=== PATIENT | male | born 1980 | race Caucasian/White ===

== ENCOUNTER 2022-12-28 16:44 | Emergency (ER) | payer OTHER, SELFPAY ==
[2022-12-28 16:51] VITALS: BP 151/87; PULSE 86; RESP 20; TEMP 36.9; O2SAT 95; BMI 42.4
[2022-12-28 17:01] VITALS: PULSE 88; O2SAT 94
[2022-12-28 17:02] VITALS: BP 138/67; PULSE 80; O2SAT 95
--- NOTE | 2022-12-28 17:13 | CRLHL7_ITS ---
For Patients: As a result of the Century Cures Act, medical imaging exams and procedure reports are released immediately into your electronic medical record. You may view this report before your referring provider. If you have questions, please contact your health care provider. INDICATION: Left flank and groin pain. TECHNIQUE: Multiple axial images were obtained from the diaphragm to the symphysis pubis without contrast. Sagittal and coronal re-formatted images were obtained. COMPARISON: 03/26/2011. FINDINGS: The visualized portion of the lung bases are clear. The liver, spleen, pancreas, gallbladder and adrenal glands are unremarkable nonenhanced CT appearance. There is no stone seen in the kidneys. There is no right hydronephrosis or ureteral stone. There is moderate left hydronephrosis with a 0.6 cm stone in the in the proximal left ureter. There is no other stone seen in the left ureter. There is no evidence of a bowel obstruction. The appendix is unremarkable. The abdominal aorta is normal in caliber. There is no adenopathy. There are atherosclerotic calcifications. There is no free fluid in the abdomen or pelvis. There are degenerative changes in the spine. IMPRESSION: 0.6 cm stone proximal left ureter causing moderate left hydronephrosis. Please note that all CT scans at this facility use dose modulation, iterative reconstruction, and/or weight-based dosing when appropriate to reduce radiation dose to as low as reasonably achievable. Dictated by Geovany Hart MD @ 12/28/2022 5:47:27 PM (Electronically Signed)
[2022-12-28 17:15] VITALS: PULSE 87; O2SAT 96
--- NOTE | 2022-12-28 17:18 | ED_ITS ---
HPI - General Adult General Chief complaint: Abdominal Pain Stated complaint: abdominal pain Time Seen by Provider: 12/28/22 16:51 Source: patient Mode of arrival: ambulatory Limitations: no limitations History of Present Illness HPI narrative: 42-year-old male coming in today complaining of abdominal pain. Pain started middle of night last night. Located in the left flank and radiates into the left groin. He states that the pain became so bad middle of the day started vomiting. He denies any fevers or chills. He denies any constipation or diarrhea, BMs have been normal. He denies any dysuria or hematuria. He states that about 13 years ago he had an episode of kidney stones and this feels very reminiscent of that. His past medical history significant for obesity and GERD. He takes famotidine and pantoprazole daily. Related Data Home Medications Medication Instructions Recorded Confirmed famotidine 40 mg tablet 40 mg PO DAILY 12/28/22 12/28/22 pantoprazole 40 mg tablet,delayed 40 mg PO DAILY 12/28/22 12/28/22 release Previous Rx's Medication Instructions Recorded tamsulosin 0.4 mg capsule (Flomax) 0.4 mg PO DAILY #20 caps 12/28/22 Allergies Allergy/AdvReac Type Severity Reaction Status Date / Time No Known Drug Allergies Allergy Verified 12/28/22 16:57 Review of Systems Status of ROS: Reports: 10 or more systems reviewed and unremarkable except as noted in History and below [facility] Social History Smoking Status: Former smoker Second hand tobacco smoke exposure: No How often do you have a drink containing alcohol: 2-4 times a month How many standard drinks containing alcohol do you have on a typical day: 1 or 2 How often do you have six or more drinks on one occasion: Never AUDIT-C Alcohol total score: 2 Non-prescribed substance use: denies use Exam Narrative: Exam Narrative: Well-nourished well-developed patient in no acute distress. Alert and oriented. Answers questions appropriately. Mood and affect are appropriate. Thoughts are goal oriented and rational. No tangential or magical thinking noted. Patient speaks in full sentences without needing to catch their breath. HEENT: Normocephalic atraumatic. Pupils are equally round reactive to light. Extraocular muscles are intact. Conjunctivae are moist without any icterus noted. Moist mucous membranes. Posterior pharynx is normal. Neck is soft without any lymphadenopathy or thyromegaly. No masses are appreciated. Cardiovascular: Heart is regular rate and rhythm S1 and S2 are present without any murmurs. Lungs: Clear to auscultation bilaterally no wheezes rhonchi or rales are appreciated. Patient takes deep breaths without any discomfort. Abdomen: Protuberant and soft with normal bowel sounds. No significant tenderness noted. Extremities: Bilateral lower extremities are without edema. Normal DP and PT pulses. Skin: Well perfused without any obvious rashes. Const: Vital Signs, click to edit/add: Vital Signs - 24 hr 12/28/22 16:51 12/28/22 17:01 12/28/22 17:02 Temperature 98.4 F Pulse Rate 88 80 Pulse Rate [Pulse Oximeter] 86 Respiratory Rate 20 Blood Pressure 138/67 Blood Pressure [Ri ght Upper Arm] 151/87 H Pulse Oximetry 95 94 95 Oxygen Delivery Me thod Room Air 12/28/22 17:15 Temperature Pulse Rate 87 Pulse Rate [Pulse Oximeter] Respiratory Rate Blood Pressure Blood Pressure [Ri ght Upper Arm] Pulse Oximetry 96 Oxygen Delivery Me thod Course Course Hospital Course: IV established, normal saline started, and labs drawn. CT shows a 6 mm stone in the proximal ureter with hydronephrosis. White cell count elevated at just above 14,000, normal CRP. Normal creatinine. Patient received IV Toradol and Zofran while he was here, pain is well control led. I did consult with Dr. Marc, urology at [facility], who recommended outpatient follow-up. Vital Signs Vital signs: Initial Vital Signs Temperature 98.4 F 12/28/22 16:51 Temperature Source Temporal Artery Scan 12/28/22 16:51 Pulse Rate 86 12/28/22 16:51 Respiratory Rate 20 12/28/22 16:51 Blood Pressure 151/87 H 12/28/22 16:51 Blood Pressure Mean 108 12/28/22 16:51 Blood Pressure Position Semi-Fowlers 12/28/22 16:51 Pulse Oximetry 95 12/28/22 16:51 Oxygen Delivery Method Room Air 12/28/22 16:51 Vital Signs Temperature 98.4 F 12/28/22 16:51 Pulse Rate 86 12/28/22 16:51 Respiratory Rate 20 12/28/22 16:51 Blood Pressure 151/87 H 12/28/22 16:51 Pulse Oximetry 95 12/28/22 16:51 Oxygen Delivery Method Room Air 12/28/22 16:51 Temperature 98.4 F 12/28/22 16:51 Pulse Rate 87 12/28/22 17:15 Respiratory Rate 20 12/28/22 16:51 Blood Pressure 138/67 12/28/22 17:02 Pulse Oximetry 96 12/28/22 17:15 Oxygen Delivery Method Room Air 12/28/22 16:51 Medical Decision Making MDM Narrative Medical decision making narrative: 42-year-old male with a proximal ureter 6 mm kidney stone. Patient will be discharged home on Flomax, Cipro and Toradol. Follow-up with urology as an outpatient. Low threshold to return to the ER. Lab Data Lab results reviewed: Yes I reviewed the patient's lab results Labs: Lab Results 12/28/22 12/28/22 Range/Units 17:17 17:30 WBC 14.38 H (4.50-11.00) K/uL RBC 5.96 H (4.30-5.90) m/uL Hgb 17.0 (13.5-17.5) gm/dL Hct 50.8 (37.0-53.0) % MCV 85 (80-100) fL MCH 29 (26-34) pg MCHC 34 (32-36) gm/dL RDW Coeff of Shun 12.9 (11.5-15.5) % Plt Count 261 (140-440) K/uL Neut % (Auto) 73.5 H (42.0-72.0) % Lymph % (Auto) 16.9 L (20-44) % Bacon % (Auto) 8.3 (0.0-11.0) % Eos % (Auto) 0.7 (0.0-7.0) % Baso % (Auto) 0.3 (0.0-3.0) % Neut # (Auto) 10.60 H (1.7-7.0) K/uL Lymph # (Auto) 2.40 (0.90-2.90) K/uL Bacon # (Auto) 1.20 H (0.00-0.90) K/UL Eos # (Auto) 0.10 (0.00-0.50) K/uL Baso # (Auto) 0.00 (0.00-0.30) K/uL Sodium 139 (135-149) mmol/L Potassium 4.1 (3.6-5.1) mmol/L Chloride 108 (96-114) mmol/L Carbon Dioxide 24 (20-32) mmol/L BUN 13 (5-24) mg/dL Creatinine 1.0 (0.5-1.5) mg/dL Estimated Creat Clear 82.00 Estimated GFR 95 ml/min Glucose 102 (60-115) mg/dL Lactate 0.9 (0.5-1.9) mmol/L Calcium 9.1 (8.4-10.6) mg/dL Total Bilirubin 0.4 (0.1-1.5) mg/dL Direct Bilirubin 0.1 (0.0-0.5) mg/dL AST 29 (12-35) U/L ALT 45 (4-50) U/L Alkaline Phosphatase 50 (40-150) U/L C-Reactive Protein 0.8 (0.5-1.0) mg/dL Total Protein 7.2 (6.0-8.3) g/dL Albumin 4.4 (3.3-5.0) g/dL Lipase 77 (23-300) U/L Urine Color Yellow (Yellow) Urine Appearance Clear (Clear) Urine pH 6.0 (5.0-8.5) Ur Specific [place] 1.020 (1.000-1.030) Urine Protein Negative (Negative) Urine Glucose (UA) Negative (Negative) Urine Ketones Negative (Negative) Urine Blood 3+ A (Negative) Urine Nitrite Negative (Negative) Urine Bilirubin Negative (Negative) Urine Urobilinogen 0.2 (0.2-1.0) Ur Leukocyte Esterase Negative (Negative) Urine RBC 25-50 A (0-2) Urine WBC 2-5 (0-5) Ur Squamous Epith Cells None (None-Few) Urine Bacteria None (None) Imaging Data CT scan - abdomen: Attestation: I have reviewed the pertinent imaging results. Radiologist's impression: Multiple axial images were obtained from the diaphragm to the symphysis pubis without contrast. Sagittal and coronal re-formatted images were obtained. COMPARISON: 03/26/2011. FINDINGS: The visualized portion of the lung bases are clear. The liver, spleen, pancreas, gallbladder and adrenal glands are unremarkable nonenhanced CT appearance. There is no stone seen in the kidneys. There is no right hydronephrosis or ureteral stone. There is moderate left hydronephrosis with a 0.6 cm stone in the in the proximal left ureter. There is no other stone seen in the left ureter. There is no evidence of a bowel obstruction. The appendix is unremarkable. The abdominal aorta is normal in caliber. There is no adenopathy. There are atherosclerotic calcifications. There is no free fluid in the abdomen or pelvis. There are degenerative changes in the spine. IMPRESSION: 0.6 cm stone proximal left ureter causing moderate left hydronephrosis. Discharge Plan Discharge Clinical Impression: Calculus of kidney Patient Disposition: Home, Self-Care Condition: Stable Additional Instructions: Take Flomax daily-this will relax the muscles around the stone to help it pass. (sent to pharmacy) Take antibiotic daily-this will prevent infection of the kidney. (instymeds) Take pain medication as needed.(InstyMeds) Return to the ER if you develop pain that cannot be controlled or a fever. You will need follow-up with urology as an outpatient-information to make an appointment will be provided to you. Prescriptions: New tamsulosin [Flomax] 0.4 mg capsule 0.4 mg PO DAILY Qty: 20 0RF No Action famotidine 40 mg tablet 40 mg PO DAILY pantoprazole 40 mg tablet,delayed release (DR/EC) 40 mg PO DAILY Stand Alone Forms: [employer] Info Instructions
[2022-12-28 17:26] LABS: Appearance Urine Clear (Clear); Bilirubin Urine Negative (Negative); Blood Urine 3+ (Negative); Color Urine Yellow (Yellow); Glucose Urine Negative (Negative); Ketones Urine Negative (Negative); Leukocyte Esterase Urine Negative (Negative); Nitrite Urine Negative (Negative); Protein Urine Negative (Negative); Urobilinogen Urine 0.2 (0.2-1.0)
[2022-12-28] MEDS: 0.9 % SODIUM CHLORIDE 1000 ml 1,000 ML IV (17:35)
[2022-12-28 17:44] LABS: RBC Urine 25-50 (0-2)
[2022-12-28 17:44] LABS: Lactate* 0.9 mmol/L (0.5-1.9)
[2022-12-28 17:55] LABS: Hematocrit 50.8 % (37.0-53.0); Mean Corpuscular HGB Conc 34 gm/dL (32-36); Mean Corpuscular Hemoglobin 29 pg (26-34); Mean Corpuscular Volume 85 fL (80-100); Neutrophils Percent Auto 73.5 % (42.0-72.0); Platelet Count* 261 K/uL (140-440); RDW Coefficient of Variation % 12.9 % (11.5-15.5); Red Blood Count 5.96 m/uL (4.30-5.90); White Blood Count* 14.38 K/uL (4.50-11.00)
[2022-12-28 17:56] LABS: Basophils Percent Auto 0.3 % (0.0-3.0); Eosinophils Percent Auto 0.7 % (0.0-7.0); Immature Granulocytes Pct Auto 0.3 %; Lymphocytes Percent Auto 16.9 % (20-44); Monocytes Percent Auto 8.3 % (0.0-11.0); Slide Review Reflex No
[2022-12-28 18:00] LABS: Albumin* 4.4 g/dL (3.3-5.0); Chloride* 108 mmol/L (96-114)
[2022-12-28 18:01] LABS: Potassium* 4.1 mmol/L (3.6-5.1); Sodium* 139 mmol/L (135-149)
[2022-12-28 18:03] LABS: Estimated Glomerular Filt Rate 95 ml/min
[2022-12-28 18:04] LABS: Alanine Aminotransferase* 45 U/L (4-50); Alkaline Phosphatase* 50 U/L (40-150); Aspartate Amino Transferase* 29 U/L (12-35); Bilirubin Direct* 0.1 mg/dL (0.0-0.5); Bilirubin Total* 0.4 mg/dL (0.1-1.5); Blood Urea Nitrogen* 13 mg/dL (5-24); Calcium* 9.1 mg/dL (8.4-10.6); Carbon Dioxide* 24 mmol/L (20-32); Glucose* 102 mg/dL (60-115); Lipase* 77 U/L (23-300); Total Protein* 7.2 g/dL (6.0-8.3)
[2022-12-28 18:07] LABS: C Reactive Protein* 0.8 mg/dL (0.5-1.0)
[2022-12-28] MEDS: KETOROLAC 30 MG/ML inj IVP (18:33)
[2022-12-28] MEDS: ONDANSETRON 2 MG/ML inj 4 MG IVP (18:33)
== END 2022-12-28 19:18 | disposition home or self-care (01) ==
PROVIDERS: Emergency Provider Family Medicine
DX: N20.0 Calculus of kidney (principal)
CPT/HCPCS: 36415; 74176; 80048; 80076; 81001; 83605; 83690; 85025; 86140; 87086; 96374; 96375; 99284; J1885; J2405; J7030

== ENCOUNTER 2023-01-17 14:49 | Outpatient (CLI) | payer OTHER, SELFPAY ==
--- NOTE | 2023-01-17 15:00 | CRLHL7_ITS ---
For Patients: As a result of the Century Cures Act, medical imaging exams and procedure reports are released immediately into your electronic medical record. You may view this report before your referring provider. If you have questions, please contact your health care provider. Indication: Calculus of ureter Technique: Noncontrast CT abdomen and pelvis Comparison: CT 12/28/2022 Findings: Heart size is normal. Lung bases are clear. Unenhanced liver gallbladder pancreas adrenal unremarkable. Normal caliber aorta. Right kidney unremarkable. Left ureteral stent in place. Nonobstructing 5 millimeter left lower pole calculus seen. The left ureter stent is in satisfactory position. Minimal prominence left renal pelvis. No calculi along the course of the ureter or urinary bladder. Urinary bladder decompressed prostate gland unremarkable small fat containing hernias. Minimal diverticulosis bowel appears unremarkable. No suspicious bony lesions. Impression: 1. Ureteral stent in place in satisfactory position minimal prominence of the left renal pelvis. Nonobstructing stone in the left lower pole there is a 5 millimeter there are no calculi seen along the course of the ureter. Please note that all CT scans at this facility use dose modulation, iterative reconstruction, and/or weight-based dosing when appropriate to reduce radiation dose to as low as reasonably achievable. Dictated by Brittanie Monroe MD @ 01/20/2023 8:39:34 AM (Electronically Signed)
== END 2023-01-17 14:50 | disposition home or self-care (01) ==
PROVIDERS: Visit Provider Specialist
DX: N20.1 Calculus of ureter (principal)
CPT/HCPCS: 74176

== ENCOUNTER 2023-05-02 12:48 | Emergency (ER) | payer OTHER, SELFPAY ==
[2023-05-02 13:10] VITALS: BP 135/83; PULSE 68; RESP 18; TEMP 35.8; O2SAT 96; BMI 41.1
[2023-05-02 14:53] VITALS: BP 130/88; PULSE 70; RESP 16; O2SAT 97
--- NOTE | 2023-05-02 15:02 | ED.GENADULT ---
HPI - General Adult General Chief complaint: Laceration/Wound Stated complaint: lac on R pinky Time Seen by Provider: 05/02/23 14:33 Source: patient Mode of arrival: ambulatory Limitations: no limitations History of Present Illness HPI narrative: 42-year-old male coming in today with a laceration of his pinky. Patient states he was fixing a fan in his home when it slipped and lacerated his finger. He denies any other injury. Tetanus was updated in December of this year. Related Data Home Medications Medication Instructions Recorded Confirmed famotidine 40 mg tablet 40 mg PO DAILY 12/28/22 12/28/22 pantoprazole 40 mg tablet,delayed 40 mg PO DAILY 12/28/22 12/28/22 release liraglutide 0.6 mg/0.1 mL (18 mg/3 1.2 mg subcut BID 05/02/23 05/02/23 mL) subcutaneous pen injector (Victoza 2-Candelario) Previous Rx's Medication Instructions Recorded tamsulosin 0.4 mg capsule (Flomax) 0.4 mg PO DAILY #20 caps 12/28/22 amoxicillin 875 mg-potassium 1 tab PO BID 7 days #14 tabs 05/02/23 clavulanate 125 mg tablet Allergies Allergy/AdvReac Type Severity Reaction Status Date / Time No Known Drug Allergies Allergy Verified 12/28/22 16:57 Review of Systems Status of ROS: Reports: 6 or more systems reviewed and unremarkable except as noted in History and below [facility] Social History Smoking Status: Former smoker Second hand tobacco smoke exposure: No How often do you have a drink containing alcohol: 2-4 times a month How many standard drinks containing alcohol do you have on a typical day: 1 or 2 How often do you have six or more drinks on one occasion: Never AUDIT-C Alcohol total score: 2 Non-prescribed substance use: denies use Exam Narrative: Exam Narrative: Overweight patient in no acute distress. Alert and oriented. Answers questions appropriately. Mood and affect are appropriate. Thoughts are goal oriented and rational. No tangential or magical thinking noted. Patient speaks in full sentences without needing to catch their breath. HEENT: Normocephalic atraumatic. Pupils are equally round reactive to light. Extraocular muscles are intact. Conjunctivae are moist without any icterus noted. Moist mucous membranes. Extremities: Patient has a laceration at the base of the 5th digit of the right hand on the palmar surface that extends across the entire base of the finger. It penetrates through the skin and through the subcutaneous tissue. There is no bone visible his tendon is visible. He has a small artery that is actively bleeding. He has full range of motion of the finger with flexion and extension adduction and abduction. Skin: Well perfused without any obvious rashes. Const: Vital Signs, click to edit/add: Vital Signs - 24 hr 05/02/23 13:10 05/02/23 14:53 Temperature 96.5 F L Pulse Rate [Pulse Oximeter] 68 70 Respiratory Rate 18 16 Blood Pressure [Le ft Upper Arm] 135/83 130/88 Pulse Oximetry 96 97 Oxygen Delivery Me thod Room Air Room Air Course Course Hospital Course: The finger was anesthetized with 2% lidocaine. A curved mosquito was used to clamp the bleeding artery. The wound was then irrigated and explored. 4-0 Vicryl was used as a hemostatic suture around that artery with good hemostasis. Laceration was then sutured with 3-0 Ethilon. After suturing patient maintain full range of motion flexion extension and finger was vascularly intact. Vital Signs Vital signs: Initial Vital Signs Temperature 96.5 F L 05/02/23 13:10 Temperature Source Temporal Artery Scan 05/02/23 13:10 Pulse Rate 68 05/02/23 13:10 Respiratory Rate 18 05/02/23 13:10 Blood Pressure 135/83 05/02/23 13:10 Blood Pressure Mean 100 05/02/23 13:10 Blood Pressure Position Sitting 05/02/23 13:10 Pulse Oximetry 96 05/02/23 13:10 Oxygen Delivery Method Room Air 05/02/23 13:10 Vital Signs Temperature 96.5 F L 05/02/23 13:10 Pulse Rate 68 05/02/23 13:10 Respiratory Rate 18 05/02/23 13:10 Blood Pressure 135/83 05/02/23 13:10 Pulse Oximetry 96 05/02/23 13:10 Oxygen Delivery Method Room Air 05/02/23 13:10 Temperature 96.5 F L 05/02/23 13:10 Pulse Rate 70 05/02/23 14:53 Respiratory Rate 16 05/02/23 14:53 Blood Pressure 130/88 05/02/23 14:53 Pulse Oximetry 97 05/02/23 14:53 Oxygen Delivery Method Room Air 05/02/23 14:53 Medical Decision Making MDM Narrative Medical decision making narrative: 42-year-old male with a deep laceration to the palmar surface of the right hand at the base the pinky. I will put the patient on antibiotics given the depth of this laceration. We discussed signs and symptoms of infection, reasons to return for follow-up, suture removal in 7-10 days. Patient was in agreement and had no other questions. Discharge Plan Discharge Clinical Impression: Laceration Patient Disposition: Home, Self-Care Condition: Improved Additional Instructions: Keep hand clean and dry. Okay to shower, but do not soak the hand such as bathing, doing the dishes, or swimming. Follow-up with your primary care provider in 1 week for suture removal. Watch for signs of infection which include redness of the hand that spreads or purulent drainage from the laceration. Hopefully this will be avoided as you will will be given antibiotics today. Take all antibiotics as prescribed Prescriptions: New amoxicillin-pot clavulanate 875-125 mg tablet 1 tab PO BID 7 Days Qty: 14 0RF No Action famotidine 40 mg tablet 40 mg PO DAILY pantoprazole 40 mg tablet,delayed release (DR/EC) 40 mg PO DAILY tamsulosin [Flomax] 0.4 mg capsule 0.4 mg PO DAILY Qty: 20 0RF Victoza 2-Candelario 0.6 mg/0.1 mL (18 mg/3 mL) pen injector 1.2 mg subcut BID Follow Up/Referrals: GENARO CHRISTIANSON DO [Primary Care Provider] - Stand Alone [facility]: [facility] Info Inst[facility]
== END 2023-05-02 15:10 | disposition home or self-care (01) ==
PROVIDERS: Emergency Provider Family Medicine; PCP Student in an Organized Health Care Education/Training Program
DX: S61.216A Laceration without foreign body of right little finger without damage to nail, initial encounter (principal); W45.8XXA Other foreign body or object entering through skin, initial encounter
CPT/HCPCS: 12001; 99283; 99284

== ENCOUNTER 2023-07-28 12:45 | Outpatient (CLI) | payer OTHER, SELFPAY ==
--- NOTE | 2023-07-28 13:16 | W.ANESCHARGE ---
Anesthesia Charges Start Date/Time Anesthesia Start Date: 07/28/23 Anesthesia Start Time: 13:40 Stop Date/Time Anesthesia Stop Date: 07/28/23 Anesthesia Stop Time: 14:15
--- NOTE | 2023-07-28 14:16 | W.ANESCHARGE ---
Anesthesia Charges Start Date/Time Anesthesia Start Date: 07/28/23 Anesthesia Start Time: 13:40 Stop Date/Time Anesthesia Stop Date: 07/28/23 Anesthesia Stop Time: 14:15
== END 2023-07-28 12:46 | disposition home or self-care (01) ==
LOC: OP CLINIC 12:45
PROVIDERS: PCP Student in an Organized Health Care Education/Training Program; Visit Provider Internal Medicine Gastroenterology
DX: Z12.11 Encounter for screening for malignant neoplasm of colon (principal); K63.5 Polyp of colon; Z83.719 Family history of colon polyps, unspecified
CPT/HCPCS: 00811; 45380; 88305; J2704

== ENCOUNTER 2023-11-14 02:53 | Emergency (ER) | payer OTHER, SELFPAY ==
[2023-11-14 03:05] VITALS: BP 193/105; PULSE 55; RESP 24; TEMP 36.1; O2SAT 98; BMI 39.1
--- NOTE | 2023-11-14 03:20 | CT_ITS ---
Patient: [facility] Facility:?[facility] Patient ID:?[id number] Site Patient ID:?[id number]. Site :?[id number] Study:?CT-Abdomen/Pelvis with 116cc [id number] contrast-11/14/2023 3:52:12 AM Ordering Physician:Ki Landrum Final Report: INDICATION: Abdominal pain. TECHNIQUE: Multiplanar CT examination of the abdomen and pelvis was performed after the administration of 100 mL Omnipaque 350 intravenous contrast and oral contrast. COMPARISON: None. FINDINGS: Lower chest: No focal consolidation. Normal heart size. No pleural effusions or pneumothorax. Liver: Unremarkable. Gallbladder: Unremarkable. Biliary: Unremarkable. Pancreas: Within normal limits. Spleen: Unremarkable. Adrenal glands: Unremarkable. Renal/ureters/bladder: Normal in size and symmetrically enhancing. No obstructive uropathy. No hydronephrosis or obstructive urinary calculi. Small hypodensity within the mid axis of the left kidney, likely a simple renal cyst. Otherwise, no suspicious renal masses identified. The ureters appear unremarkable. The bladder is within normal limits. Pelvis: Unremarkable. Gastrointestinal: No bowel wall thickening or bowel obstruction. Normal appendix. No significant colonic diverticulosis. Moderate colonic stool burden. Vasculature: No aortic aneurysm. The portal vein remains patent. No significant atherosclerotic calcifications. Lymph nodes: No pathologic lymphadenopathy by size criteria. Peritoneum: No free fluid or pneumoperitoneum. No drainable fluid collections. Abdominal wall/soft tissues: Small fat containing umbilical and right inguinal hernias. Bones: No acute osseous abnormalities intraosseous hemangioma within the L4 vertebral body. IMPRESSION: 1. Small fat containing umbilical and right inguinal hernias. No herniation of bowel, no bowel obstruction. 2. Otherwise, no acute abdominopelvic pathology. The etiology of the patient`s abdominal pain is not elucidated on this examination. 3. Moderate colonic stool burden, correlate for constipation. Please note that all CT scans at this facility use dose modulation, iterative reconstruction, and/or weight-based dosing when appropriate to reduce radiation dose to as low as reasonably achievable. Dictated by David Bryant MD @ 11/14/2023 4:09:49 AM Signed by:?David Bryant MD @11/14/2023 4:09:49 AM (Electronic Signature)
--- OUTSIDE RECORDS SUMMARY | 2023-11-14 03:31 | XMS_ITS | Encounter Summary ---
Author Name Unknown Organization [place] Address [facility] [place] [address] Care Team Providers Care Skin Care Specialist Name Role Phone OdalisPhuongrenetta MORENO Primary Care Provider [phone] Reason for Visit * Auth/Cert (Routine) Specialty Diagnoses / Procedures Referred By Peggy campos Referred To Contact Surgery Diagnoses Calculus of kidney Calculus of kidney [N20.0] Procedures WI LITHOLAPAXY BLADDER STONE <2.5CM WI REMOVE BLADDER STONE,>2.5CM WI CYSTO/URETERO W/LITHOTRIPSY &INDWELL STENT INSRT CYSTOSCOPY WITH LEFT URETEROSCOPY, HOLMIUM LASER LITHOTRIPSY, STONE BASKETING AND LEFT URETERAL STENT REPLACEMENT [facility] Periop Services [address] [place] [phone] Referral ID Status Reason Start Date Expiration Date Visits Re quested Visits Authorized [id number] 1 1 Encounter Details Date Type Department Care Team (Late st Contact Info) Description 02/05/2023 11:15 AM CDT - 02/05/2023 1:00 PM CDT Surgery [facility] [address] [place] [phone] Jc Bonilla MD [place] [facility] [address] [id number] CYSTOSCOPY WITH LEFT URETEROSCOPY, HOLMIUM LASER LITHOTRIPSY, STONE BASKETING AND LEFT URETERAL STENT REPLACEMENT Surgery Details Date/Time Status Location OR Service Patient Class Case Class Case Type Trauma Case? 02/05/23 11:15 AM Posted [employer] [facility] OR [facility] OR 02 Urology Same Day Surgery Elective Panel 1 Procedure LRB Anes Op Region Wound Class Comments CYSTOSCOPY WITH LEFT URETEROSCOPY, HOLMIUM LASER LITHOTRIPSY, STONE BASKETING AND LEFT URETERAL STENT REPLACEMENT Left General Ureter II-Clean Contaminated Surgeon Surgeon Role Service Panel Jc Bonilla MD Primary Urology 1 Special Needs Position: Lithotomy; X-ray and Holmium Laser; 1 hour documented in this encounter Social History Tobacco Use Types Packs/Day Years Used Date Smoking Tobacco: Former Smokeless Tobacco: Never Comments:quit in 2000 Alcohol Use Standard Drinks/Week Comments Not Currently 0 (1 standard drink = 0.6 oz pur e alcohol) Sex and Gender Information Value Date Recorded Sex Assigned at Not on file Gender Identity Not on file Sexual Orientation Not on file COVID-19 Exposure Response Date Recorded In the last 10 days, have yo u been in contact with someone who was confirmed or suspected to have Coronavirus/COVID-19? No / Unsure 02/05/2023 10:16 AM CDT documented as of this encounter Last Filed Vital Signs Vital Sign Reading Time Taken Comments Blood Pressure 155/83 02/05/2023 10:18 AM CDT Pulse 67 02/05/2023 10:18 AM CDT Temperature 36.9 ??C (98.4 ??F) 02/05/2023 1 0:18 AM CDT Respiratory Rate 16 02/05/2023 10:1 8 AM CDT Oxygen Saturation 95% 02/05/2023 10: 18 AM CDT Inhaled Oxygen Concentration - - Weight 115.6 kg (254 lb 13.6 oz) 2022 10:18 AM CDT Height 165.1 cm (5' 5) 02/05/2023 10:1 8 AM CDT Body Mass Index 42.41 02/05/2023 10:18 AM CDT documented in this encounter Discharge Instructions * Discharge Instructions* Kristy Brice RN - 02/05/2023 1:24 PM CDT * Attachments The following attachments cannot be sent through Care Everywhere. * After Your Surgery: Discharge Instructions (Northern Irish) documented in this encounter Medications at Time of Discharge Medication Sig Dispensed Refills Start Date End Date diclofenac (VOLTAREN) 50 MG EC tabletIndications:Renal calculus, left Take 1 tablet 3 times a day if needed for kidney stent pain. 40 tablet 0 02/05/2023 famotidine (PEPCID) 40 MG tablet Take 40 mg by mouth daily 0 order for DMEIndications:Plantar fascial fibromatosis Equipment being ordered: night splint 1 Device 0 08/19/2016 oxyCODONE (ROXICODONE) 5 MG tabletIndications:Renal calculus, left Take 1-2 tablets (5-10 mg) by mouth every 4 hours as needed for moderate to severe pain 12 tablet 0 02/05/2023 pantoprazole sodium (PROTONIX) 40 MG packet Take 1 packet by mouth daily 0 phenazopyridine (PYRIDIUM) 200 MG tabletIndications:Renal calculus, left Take 1 tablet 3 times a day with food if needed for burning painful urination. 12 tablet 0 02/05/2023 senna-docusate (SENOKOT-S/PERICOLACE) 8.6-50 MG tabletIndications:Renal calculus, left Take 1-2 tablets by mouth 2 times daily To help prevent constipation. 30 tablet 0 02/05/2023 tamsulosin (FLOMAX) 0.4 MG capsule Take 0.4 mg by mouth daily 0 tolterodine ER (DETROL LA) 4 MG 24 hr capsuleIndications:Renal calculus, left Take 1 tablet daily if needed for bladder urgency frequency or spasm. 15 capsule 0 02/05/2023 documented as of this encounter H&P Notes * Jc Bonilla MD - 02/05/2023 10:53 AM CDT The pre-operative history and physical examination was reviewed and the patient examined. There areno changes to be made to the history and physical examination. Jc Bonilla M.D. Pager [phone] 02/05/2023 10:53 AM [facility], [address], [place] [address] documented in this encounter Miscellaneous Notes * Op Note - Jc Bonilla MD - 02/05/2023 11:51 AM CDT Operative note: Procedure: 1. Cystoscopy with left ureteroscopy, holmium laser lithotripsy, stone basketing and left ureteral stent placement. Surgeon: Jc Bonilla MD Anesthesia: General Preparation: Betadine Preoperative diagnosis: 1. Left renal calculus 5 mm. Postoperative diagnosis: Same The patient was brought to the operating suite where satisfactory general anesthesia was induced. He was placed in the dorsolithotomy position on the operating table and sterilely prepped and draped.A timeout was called. A 22 Icelandic Olympus cystoscope was then advanced per urethra into the bladder. Prostate is moderately enlarged. Inspection of the bladder was normal. The existing left ureteral stent was brought out part way through the urethral meatus. I then threaded a 0.035 Bentson guidewire through the stent all the way up into the left renal pelvis under fluoroscopic guidance. A second guidewire was also placed and I then passed the flexible ureteroscope upthe second Glidewire into the kidney. The 5 mm stone was identified in the lower pole calyx and it was at a very difficult angle to retrieve and treat with laser so I had to use a 1.9 Icelandic nitinol basket to reposition the stone in the renal pelvis. Once this was accomplished I then used the 200 ??m holmium laser fiber setting the power at 10 W tobreak the stone up into about 2 or 3 smaller pieces. There was 1 piece that is fairly small that wewere not able to retrieve but the other 2 larger fragments were retrieved with a 1.9 Icelandic nitinolbasket and removed and sent to pathology for analysis. The guidewire was then backloaded onto the cystoscope and a new 6 x 24 double-J stent was advanced up the guidewire via the Seldinger technique into the left renal pelvis under fluoroscopic guidance.The stent was confirmed to be in good position. The dangle string was cut from the stent and the guidewire withdrawn. The cystoscope was withdrawn after the bladder was drained. EBL: 10 mL. Complications: None The patient will likely had a considerable amount of ureteral edema postop because of the narrow caliber of his ureter so we plan to leave the stent in for 2 weeks and then remove in the office. He was otherwise taken to PACU in satisfactory condition after anesthesia was reversed. Jc Bonilla M.D. February 05, 2023 Pager [phone] documented in this encounter Plan of Treatment Not on file documented as of this encounter Procedures Procedure Name Priority Date/Time Associated Diagnosis Comments XR SURGERY RAISA FLUORO GREATER THAN 5 MIN Routine 02/05/2023 1:05 PM CDT STONE ANALYSIS Routine 02/05/2023 12:50 PM CDT CYSTOURETEROSCOPY, WITH NEPHROSCOPY, LITHOTRIPSY USING HOLMIUM LASER, AND URETERAL STENT INSERTION 02/05/2023 11:24 AM CDT Calculus of kidney Special Needs Position: Lithotomy; X-ray and Holmium Laser; 1 hour LAB RESULT - HIM SCAN 01/09/2023 12:00 AM CDT documented in this encounter Results * XR Surgery RAISA Fluoro G/T 5 Min (02/05/2023 1:05 PM CDT) Narrative RADIANT - 02/05/2023 1:08 PM CDT This exam was marked as non-reportable because it will not be read by a radiologist or a [place] non-radiologist provider. Jc Bonilla MD [facility] DIAGNOSTIC IMAGI NG ORDERABLES RADIANT * Stone analysis (02/05/2023 12:50 PM CDT) Stone Mass 17 mg 02/07/2023 1:33 PM CDT [facility] Calculi Description See Note 02/07/2023 1:33 PM CDT [facility] Comment: Specimen consists of two brown and ly calculi fragments. The total weight is 17 mg. Stone Composition See Note 023 1:33 PM CDT [facility] Comment: Calculi composed primarily of: 90% calcium oxalate monohydrate, and 10% calcium oxalate dihydrate. INTERPRETIVE INFORMATION: Calculi (Stone) analysis Calculi are the products of physiological processes that yield crystalline compounds in a matrix of biological compounds and blood. ??Matrix components are not reported. ?? The clinically significant crystalline components identified in calculi specimens are reported. ??Gross description may not be consistent with composition determined by FTIR analysis. Performed By: [facility] [address] [place] [address] Filer Repairer: Simon Guaman MD, PhD Calculus/Stone LEFT KIDNEY STRUCTURE / Unknown Non-blood Collection / Unknown 02/05/2023 12:50 PM CDT 02/05/2023 1:10 PM CDT Jc Bonilla MD LAB - BODY FLUIDS OR DERABLES [facility] [address] [place] [phone], [facility] [phone] * LAB RESULT - HIM SCAN (01/09/2023 12:00 AM CDT) 01/09/2023 Provider Outside NON-BEAKER LAB TE STING documented in this encounter Visit Diagnoses Diagnosis Renal calculus, left- Primary Calculus of kidney Renal calculus, left Calculus of kidney Calculus of kidney documented in this encounter Administered Medications Inactive Administered Medications - up to 3 most recent administrations Medication Order MAR Action Action Date Dose Rate Site acetaminophen (TYLENOL) tablet 650 mg 650 mg, Oral, ONCE, On Fri02/05/23 at 1330, For 1 dose, One time prior to discharge. Maximum acetaminophen dose from all sources = 75 mg/kg/day not to exceed 4 grams/day. $Given 02/05/2023 2:10 PM CDT 650 mg iohexol (OMNIPAQUE) 300 mg/mL injection PRN, Starting on Fri02/05/23 at 1254, Intra-procedure $Given 02/05/2023 12:54 PM CDT 20 mLs Operative Site/Surgical Site oxyCODONE (ROXICODONE) tablet 10 mg 10 mg, Oral, ONCE PRN, severe pain, Starting on Fri02/05/23 at 1320, For 1 dose, Max: 5 mg for opioid-na??ve patient. Use caution with patient Age GREATER than 65 years, COPD, or CrCl LESS than 50 mL/min., Phase ll oxyCODONE (ROXICODONE) tablet 5 mg 5 mg, Oral, ONCE PRN, moderate pain, Starting on Fri02/05/23 at 1320, For 1 dose, Max: 5 mg for opioid-na??ve patient., Phase ll $Given 02/05/2023 2:07 PM CDT 5 mg sodium chloride 0.9% (bag) irrigation PRN, Starting on Fri02/05/23 at 1254, Intra-procedure $Given 02/05/2023 12:54 PM CDT 2,090 mLs Operative Site/Surgical Site documented in this encounter Active and Recently Administered Medications Times are shown in CDT. Scheduled Medication Order 02/03/2023 02/04/2023 02/05/2023 acetaminophen (TYLENOL) tablet 650 mg (COMPLETED) 650 mg, Oral, ONCE, On Fri02/05/23 at 1330, For 1 dose, One time prior to discharge. Maximum acetaminophen dose from all sources = 75 mg/kg/day not to exceed 4 grams/day. 1410 ($Given - Provi richard: Kristy Brice RN) ceFAZolin Sodium (ANCEF) injection 2 g (COMPLETED) Routine, 2 g, Intravenous, PRE-OP/PRE-PROCEDURE, Starting on Fri02/05/23 at 1006, For 1 dose, Give first dose within 1 hour PRIOR to incision. If patient weight is greater than or equal to 120 kg increase dose to 3 g., Indications: Perioperative Pharmacoprophylaxis, Pre-procedure 1124 ($Given - Provi richard: Kristy Yates APRN RIBBER) PRN Medication Order 02/03/2023 02/04/2023 02/05/2023 iohexol (OMNIPAQUE) 300 mg/mL injection (CANCELED) PRN, Starting on Fri02/05/23 at 1254, Intra-procedure 1254 ($Given - Provi richard: Jc Bonilla MD) oxyCODONE (ROXICODONE) tablet 10 mg 10 mg, Oral, ONCE PRN, severe pain, Starting on Fri02/05/23 at 1320, For 1 dose, Max: 5 mg for opioid-na??ve patient. Use caution with patient Age GREATER than 65 years, COPD, or CrCl LESS than 50 mL/min., Phase ll oxyCODONE (ROXICODONE) tablet 5 mg (COMPLETED) 5 mg, Oral, ONCE PRN, moderate pain, Starting on Fri02/05/23 at 1320, For 1 dose, Max: 5 mg for opioid-na??ve patient., Phase ll 1407 ($Given - Provi richard: Kristy Brice RN) sodium chloride 0.9% (bag) irrigation (CANCELED) PRN, Starting on Fri02/05/23 at 1254, Intra-procedure 1254 ($Given - Provi richard: Jc Bonilla MD) documented in this encounter Care Teams Skin Care Specialist Relationship Specialty Start Date End Date Jaycob Jacobo DO PCP - General 01/29/23 documented as of this encounter
--- OUTSIDE RECORDS SUMMARY | 2023-11-14 03:31 | XMS_ITS | Encounter Summary ---
Author Name Unknown Organization [place] Address [address] [facility] [place] [address] Care Team Providers Care Senior Publications Specialist Name Role Phone OdalisPhuongrenetta MORENO Primary Care Provider [phone] Reason for Visit * Auth/Cert (Routine) Specialty Diagnoses / Procedures Referred By Peggy campos Referred To Contact Surgery Diagnoses Calculus of kidney Calculus of kidney [N20.0] Procedures [place] LITHOLAPAXY BLADDER STONE <2.5CM [place] REMOVE BLADDER STONE,>2.5CM [place] CYSTO/URETERO W/LITHOTRIPSY &INDWELL STENT INSRT CYSTOSCOPY WITH LEFT URETEROSCOPY, HOLMIUM LASER LITHOTRIPSY, STONE BASKETING AND LEFT URETERAL STENT REPLACEMENT [facility] Periop Services [address] [place] [phone] Referral ID Status Reason Start Date Expiration Date Visits Re quested Visits Authorized [id number] 1 1 Encounter Details Date Type Department Care Team (Latest Contact Info) Description 02/05/2023 9:56 AM CDT - 02/05/2023 2:33 PM CDT Hospital Encounter [facility]/Phase II [address] [place] [phone] Jc Bonilla MD [facility] [address] [place] [id number] Renal calculus, left (Primary Dx) Discharge Disposition: Home or Self Care Social History Tobacco Use Types Packs/Day Years [...] Sign Reading Time Taken Comments Blood Pressure 143/86 02/05/2023 2:23 PM CDT Pulse 72 02/05/2023 2:23 PM CDT Temperature 36.4 ??C (97.6 ??F) 02/05/2023 1:30 PM CD T Respiratory Rate 24 02/05/2023 1:30 PM CDT Oxygen Saturation 94% 02/05/2023 2:23 PM CDT Inhaled Oxygen Concentration - - Weight [...] Everywhere. * After Your Surgery: Discharge Instructions (Taiwanese) documented in this encounter Medications at Time [...] and physical examination. Jc Bonilla M.D. Pager [phone] 02/05/2023 10:53 AM [facility], [address], [place] [address] documented in this encounter Miscellaneous Notes * [...] and draped.A timeout was called. A 22 Cambodian Olympus cystoscope was then advanced per urethra [...] so I had to use a 1.9 Cambodian nitinol basket to reposition the stone in [...] larger fragments were retrieved with a 1.9 Cambodian nitinolbasket and removed and sent to pathology [...] Jc Bonilla M.D. February 05, 2023 Pager [phone] documented in this encounter Plan of Treatment [...] be read by a radiologist or a [place] non-radiologist provider. Jc Bonilla MD IMG DIAGNOSTIC IMAGI NG ORDERABLES [facility] * Stone analysis (02/05/2023 12:50 PM CDT) Stone Mass 17 mg 02/07/2023 1:33 PM CDT [facility] Calculi Description See Note 02/07/2023 1:33 PM CDT [facility] Comment: Specimen consists of two brown and ly calculi fragments. The total weight is 17 mg. Stone Composition See Note 023 1:33 PM CDT [facility] Comment: Calculi composed primarily of: 90% calcium [...] composition determined by FTIR analysis. Performed By: [facility] [address] [place] [id number] Electrical Prospector: Simon Guaman MD, PhD Calculus/Stone LEFT KIDNEY STRUCTURE / Unknown Non-blood Collection / Unknown 02/05/2023 12:50 PM CDT 02/05/2023 1:10 PM CDT Jc Bonilla MD LAB - BODY FLUIDS OR DERABLES [facility] [address] [place] [address], [facility] [phone] * LAB RESULT - HIM SCAN (01/09/2023 12:00 AM CDT) 01/09/2023 Provider Outside NON-BEAKER LAB TE STING documented in this encounter Visit Diagnoses Diagnosis Renal calculus, left- Primary Calculus of kidney Renal calculus, left Calculus of kidney documented in this encounter [...] $Given 02/05/2023 2:10 PM CDT 650 mg oxyCODONE (ROXICODONE) tablet 10 mg 10 mg, [...] $Given 02/05/2023 2:07 PM CDT 5 mg documented in this encounter Active and Recently [...] Pre-procedure 1124 ($Given - Provi richard: Kristy Yates, TECHNICIAN SUPPORT ENGINEER MOVEMENT THERAPIST) PRN Medication Order 02/03/2023 02/04/2023 02/05/2023 iohexol [...] MD) documented in this encounter Care Teams Senior Publications Specialist Relationship Specialty Start Date End Date Jaycob Jacobo DO PCP - General 01/29/23 documented as of this encounter
--- OUTSIDE RECORDS SUMMARY | 2023-11-14 03:31 | XMS_ITS | Encounter Summary ---
Author Name Unknown Organization [place] Address [address] [place] [address]. [place] [address] Care Team Providers Care Aluminum Container Tester Name Role Phone Jaycob Jacobo DO Primary Care Provider [phone] Encounter Details Date Type Department Care Team (Latest Contact Info) Description 02/05/2023 Travel Social History Tobacco Use Types Packs/Day Years [...] AM CDT documented as of this encounter Plan of Treatment Not on file documented as of this encounter Visit Diagnoses Not on filedocumented in this encounter Care Teams Aluminum Container Tester Relationship Specialty Start Date End Date Jaycob Jacobo DO PCP - General 01/29/23 documented as of this encounter
--- OUTSIDE RECORDS SUMMARY | 2023-11-14 03:31 | XMS_ITS | Encounter Summary ---
Author Name Unknown Organization [place] Address [address] [place] [address]. [place] [address] Care Team Providers Care Ham Sawyer Name Role Phone Jaycob Jacobo DO Primary Care Provider [phone] Encounter Details Date Type Department Care Team (Latest Contact Info) Description 01/31/2023 Travel Social History Tobacco Use Types Packs/Day [...] suspected to have Coronavirus/COVID-19? No / Unsure 01/31/2023 1:56 PM CDT documented as of this encounter Plan of Treatment Not on file documented as of this encounter Visit Diagnoses Not on filedocumented in this encounter Care Teams Ham Sawyer Relationship Specialty Start Date End Date Jaycob Jacobo DO PCP - General 01/29/23 documented as of this encounter
--- OUTSIDE RECORDS SUMMARY | 2023-11-14 03:31 | XMS_ITS | Data Portability ---
Author Name Unknown Address [address] [place] [address] Phone [phone] Organization [facility] Address [address] [place] [address] Care Team Providers Care Supervisor Stripping Name Role Phone BRYAN GRAY Primary Care Provider [phone] Assessment Encounter Date Assessment Date Assessment LastModified by Organization Details LastModified Time 01/01/2023 01/01/2023 42 year old male with history of ureteric stone presents for initial evaluation. [email or web address] Not available 01/01/2023 14:57:57 06/30/2023 06/30/2023 This is a 42 yea r old male who is here for the evaluation and management of nephrolithiasis [email or web address] Not available 06/30/2023 16:18:01 Plan of Treatment Reminders Order Date Submit Date Provider Last Modified By Organization Details Last Modified Time Details Appointments None recorded. Lab unlisted lab - stone blood 2022 023 [facility], [address], [address], [address], 3 14:16:22 stone risk analysis panel 2022 023 [facility], [address], [address], [place], [address], 3 14:16:24 urinalysis, dipstick 2022 023 [facility], [address], [address], [place], [address], 13:57:45 Referral None recorded. Procedures None recorded. Surgeries cystoscopy, with ureteroscop y, with lithotripsy , with insertion of ureteral stent (SURG) 2022 023 [email or web address] 89 [facility], [address], [place], [address], 08:15:34 Imaging US, renal 2022 024 [email or web address] 89 [facility] [place], [address], [address], [place], [address], 16:27:46 Medication Orders oxycodone 5 mg tablet 2022 023 [email or web address] [id number], [address], [address], 15:23:35 tamsulosin 0.4 mg capsule 2022 023 [email or web address] [id number], [address], [address], 16:30:52 ondansetron 4 mg disintegrat ing tablet 2022 023 [email or web address] [id number], [address], [address], 16:30:51 Patient TargetsNo targets recorded. Patient Instructions Encounter Date Encounter Id Patient Instructions Last Modified By Organization Details Last Modified Time 06/30/2023 [id number] History of nephrolithiasis: - We reviewed his recent metabolic evaluation which demonstrated low urinary volume, hypercalciuria, hyperuricuria, and hyperoxaluria - He will focus on making dietary changes to address these. We also reviewed general guidelines - We discussed general fluid and dietary guidelines to help prevent further stone formation includin.)??Fluid??consum ption??of??prefera brenda??water??to??ma ke??at??least??2.5 ??L/day??of??urine 2.)??Low??sodium?? consumption??(less ??than??2,300mg/da y).??Dietary??salt ??intake??is??link ed??to??calcium??e xcretion. 3.)??Moderate??jerry cium??consumption? ?(up??to??1,000??t o??1,200mg/day).?? Avoid??calcium??re striction??-??this ??has??been??shown ??to??increase??th e??risk??of??stone ??formation 4.)??Low??fat??and ??moderate??animal ??protein??consump tion??(meats,??fis h,??poultry,??eggs )??with??increased ??intake??of??frui ts??and??vegetable s 5.)??Limit??consum ption??of??oxalate ??rich??foods??- spinach, lithuanian chard,??tea,??amrit olate,??dark rafael, tree nuts,??strawberrie s, rhubarb, and to avoid excess vitamin C intake 6.) 1 oz of lemon juice daily for citrate supplementation - He was offered to repeat his evaluation in 3 months to see how successful he is in making these changes. He prefers to wait a year. - I will see him back in 1 year with a renal US and metabolic eval - If he develops any signs of a stone between then and now, he will contact us [email or web address] Not available 06/30/2023 16:21:55 02/17/2023 [id number] Left ureteral stent removed today. Stone analysis showed 90% calcium oxalate monohydrate and 10% calcium oxalate dihydrate. (Normal Routine Diet) Get back on your normal routine diet. See Alicia Mishra PA-C in 3 months and come to the [facility] 3 weeks before for blood work and 24 hour urine collection. At follow up appointment, we will then discuss strategies for stone prevention. [email or web address] Not available 02/17/2023 12:33:03 Reason for Referral None Reported. Results Created Date Observation Date Name Description Value Unit Range Abnormal Flag LastModifiedBy Organization Detail LastModifiedTime 01/02/2001/01/2023 UA WITHO UT MICRO MAPLE WOOD color-status yellow yellow Not Available [email or web address] [address] [facility] [address], [place], [address], 01/01/2023 13:57:45 01/02/20 23 01/01/2023 UA WITHO UT MICRO MAPLE WOOD clarity-stat us clear clear Not Available [facility] [address] [place] [address] [address], [place], [address], 01/01/2023 13:57:45 01/02/20 23 01/01/2023 UA WITHO UT MICRO MAPLE WOOD glucose-stat us negati ve mg/dL negati ve Not Available [facility] [address] [facility] [address], [place], [address], 01/01/2023 13:57:45 01/02/20 23 01/01/2023 UA WITHO UT MICRO MAPLE WOOD bilirubin-ur ine negati ve negati ve Not Available [facility] [address] [facility] [address], [place], [address], 01/01/2023 13:57:45 01/02/20 23 01/01/2023 UA WITHO UT MICRO MAPLE WOOD ketones-stat us negati ve mg/dL negati ve Not Available [facility] [address] [facility] [address], [place], [address], 01/01/2023 13:57:45 01/02/20 23 01/01/2023 UA WITHO UT MICRO MAPLE WOOD SG-status 1.025 1.00-1 .03 Not Available [facility] [address] [place] [address] [address], [place], [address], 01/01/2023 13:57:45 01/02/20 23 01/01/2023 UA WITHO UT MICRO MAPLE WOOD pH-status 7.0 5.00-8 .00 Not Available [facility] [address] [facility] [address], [place], [address], 01/01/2023 13:57:45 01/02/20 23 01/01/2023 UA WITHO UT MICRO MAPLE WOOD protein-stat us negati ve mg/dL negati ve Not Available [facility] [address] [facility] [address], [place], [address], 01/01/2023 13:57:45 01/02/20 23 01/01/2023 UA WITHO UT MICRO MAPLE WOOD urobilinogen -status 0.2 E.U./d L E.U./ dL 0.2 E.U./d L Not Available [facility] [address] [facility] [address], [place], [address], 01/01/2023 13:57:45 01/02/20 23 01/01/2023 UA WITHO UT MICRO MAPLE WOOD nitrites-sta tus negati ve negati ve Not Available [facility] [address] [facility] [address], [place], [address], 01/01/2023 13:57:45 01/02/20 23 01/01/2023 UA WITHO UT MICRO MAPLE WOOD blood-urine modera te negati ve abnormal Not Available [facility] [address] [facility] [address], [place], [address], 01/01/2023 13:57:45 01/02/20 23 01/01/2023 UA WITHO UT MICRO MAPLE WOOD leuko-status negati ve negati ve Not Available [facility] [address] [facility] [address], [place], [address], 01/01/2023 13:57:45 01/02/20 23 01/01/2023 UA WITHO UT MICRO MAPLE WOOD performed by justo Chacon Not Available [facility] [address] [place] [address] [address], [place], [address], 01/01/2023 13:57:45 01/02/20 23 01/01/2023 UA WITHO UT MICRO MAPLE WOOD total urine volume (mL) 90 cc /mL Not Available [facility] [address] [place] [address] [address], [place], [address], 01/01/2023 13:57:45 06/08/20 23 06/08/2023 UROST ONE 24 volume 1.300 L 0.510- 2.560 Not Available [facility] [address] [place] [address] [address], [place], [address], 06/09/2023 14:16:24 06/08/20 23 06/08/2023 UROST ONE 24 pH 6.00 5.60-7 .10 Not Available [facility] [address] [place] [address] [address], [place], [address], 06/09/2023 14:16:24 06/08/20 23 06/08/2023 UROST ONE 24 U chloride 189.0 mmol/ L Not Available [facility] [address] [place] [address] [address], [place], [address], 06/09/2023 14:16:24 06/08/20 23 06/08/2023 UROST ONE 24 U creatinine 206.0 mg/dL Not Available [facility] [address] [facility] [address], [place], [address], 06/09/2023 14:16:24 06/08/20 23 06/08/2023 UROST ONE 24 U magnesium 10.2 mg/dL Not Available Benito gamboa [facility] [address] [facility] [address], [place], [address], 06/09/2023 14:16:24 06/08/20 23 06/08/2023 UROST ONE 24 U phosphorus 79.0 mg/dL Not Available Durga hinojosa [facility] [address] [facility] [address], [place], [address], 06/09/2023 14:16:24 06/08/20 23 06/08/2023 UROST ONE 24 U potassium 44.30 mmol/ L Not Available [facility] [address] [place] [address] [address], [place], [address], 06/09/2023 14:16:24 06/08/20 23 06/08/2023 UROST ONE 24 U protein 11.31 mg/dL Not Available [facility] [address] [facility] [address], [place], [address], 06/09/2023 14:16:24 06/08/20 23 06/08/2023 UROST ONE 24 U sodium 193.0 mmol/ L Not Available [facility] [address] [place] [address] [address], [place], [address], 06/09/2023 14:16:24 06/08/20 23 06/08/2023 UROST ONE 24 U uric acid 81.0 mg/dL Not Available [facility] [address] [facility] [address], [place], [address], 06/09/2023 14:16:24 06/08/20 23 06/08/2023 UROST ONE 24 24 calcium 321.0 mg/24 _hour s 8.5-27 7.0 high Not Available [facility] [address] [place] [address] [address], [place], [address], 06/09/2023 14:16:24 06/08/20 23 06/08/2023 UROST ONE 24 24 chloride 245.70 mmol/ 24_ho urs 28.20- 244.70 high Not Available [facility] [address] [place] [address] [address], [place], [address], 06/09/2023 14:16:24 06/08/20 23 06/08/2023 UROST ONE 24 24 magnesium 132.86 mg/24 _hour s 43.00- 246.00 Not Available [facility] [address] [facility] [address], [place], [address], 06/09/2023 14:16:24 06/08/20 23 06/08/2023 UROST ONE 24 24 phosphorus 1027.0 0 mg/24 _hour s 127.00 -1318. 00 Not Available [facility] [address] [place] [address] [address], [place], [address], 06/09/2023 14:16:24 06/08/20 23 06/08/2023 UROST ONE 24 24 potassium 57.59 mmol/ 24_ho urs 7.70-9 1.30 Not Available [facility] [address] [place] [address] [address], [place], [address], 06/09/2023 14:16:24 06/08/20 23 06/08/2023 UROST ONE 24 24 protein 147.03 mg/24 _hour s 40.00- 150.00 Not Available [facility] [address] [place] [address] [address], [place], [address], 06/09/2023 14:16:24 06/08/20 23 06/08/2023 UROST ONE 24 24 sodium 250.90 mmol/ 24_ho urs 26.40- 243.80 high Not Available [facility] [address] [place] [address] [address], [place], [address], 06/09/2023 14:16:24 06/08/20 23 06/08/2023 UROST ONE 24 24 uric acid 1053.0 0 mg/24 _hour s 136.00 -763.0 0 high Not Available [facility] [address] [place] [address] [address], [place], [address], 06/09/2023 14:16:24 06/08/20 23 06/08/2023 UROST ONE 24 24creatinine 2678.0 0 mg/24 hrs 384.00 -2189. 00 high Not Available [facility] [address] [facility] [address], [place], [address], 06/09/2023 14:16:24 06/08/20 23 06/13/2023 OXALA TE, QUANT , 24-HO UR URINE oxalates, urine 22 mg/L undefi quintin Not Available [facility] ([facility]) [address] [place], [address], 06/13/2023 17:08:19 06/08/20 23 06/13/2023 OXALA TE, QUANT , 24-HO UR URINE oxalates, urine 24HR 29 mg/24 _HR 7-44 Not Available [facility] ([facility]) [address] [place], [address], 06/13/2023 17:08:19 06/08/20 23 06/19/2023 CITRI C ACID (CITR ATE), URINE citric acid, urine 609 mg/L undefi quintin Not Available [facility] ([facility]) [address] [place], [address], 06/19/2023 16:10:27 06/08/20 23 06/19/2023 CITRI C ACID (CITR ATE), URINE citric acid, U, 24HR 792 mg/24 _HR 320-12 40 Not Available [facility] ([facility]) [address] [place], [address], 06/19/2023 16:10:27 06/09/20 23 06/09/2023 STONE BLOOD Na 138.0 mmol/ L 135.0- 145.0 Not Available [facility] [address] [facility] [address], [place], [address], 06/09/2023 14:16:22 06/09/20 23 06/09/2023 STONE BLOOD potassium 4.2 mmol/ L 3.6-5. 0 Not Available [facility] [address] [facility] [address], [place], [address], 06/09/2023 14:16:22 06/09/20 23 06/09/2023 STONE BLOOD chloride 101.0 mmol/ L 101.0- 111.0 Not Available [facility] [address] [facility] [address], [place], [address], 06/09/2023 14:16:22 06/09/20 23 06/09/2023 STONE BLOOD CO2 28.0 mmol/ L 21.0-3 1.0 Not Available [facility] [address] [facility] [address], [place], [address], 06/09/2023 14:16:22 06/09/2006/09/2023 STONE BLOOD aniongap 9.00 0.00-1 6.00 Not Available [facility] [address] [facility] [address], [place], [address], 06/09/2023 14:16:22 06/09/20 23 06/09/2023 STONE BLOOD glu 86.00 mg/dL 70.00- 105.00 Not Available [facility] [address] [facility] [address], [place], [address], 06/09/2023 14:16:22 06/09/20 23 06/09/2023 STONE BLOOD Ca 9.3 mg/dL 8.4-10 .2 Not Available [facility] [address] [facility] [address], [place], [address], 06/09/2023 14:16:22 06/09/2006/09/2023 STONE BLOOD mg 1.7 mg/dL 1.7-2. 8 Not Available [facility] [address] [facility] [address], [place], [address], 06/09/2023 14:16:22 06/09/20 23 06/09/2023 STONE BLOOD phosphorus 3.1 mg/dL 2.5-4. 6 Not Available [facility] [address] [facility] [address], [place], [address], 06/09/2023 14:16:22 06/09/20 23 06/09/2023 STONE BLOOD uric acid 6.2 mg/dL 2.6-7. 2 Not Available [facility] [address] [facility] [address], [place], [address], 06/09/2023 14:16:22 06/09/20 23 06/09/2023 STONE BLOOD BUN 13.0 mg/dL 7.0-18 .0 Not Available [facility] [address] [facility] [address], [place], [address], 06/09/2023 14:16:22 06/09/20 23 06/09/2023 STONE BLOOD BUN/creat 11.5 ratio 9.0-20 .0 Not Available [facility] [address] [facility] [address], [place], [address], 06/09/2023 14:16:22 06/09/20 23 06/09/2023 STONE BLOOD creatinine 1.1 mg/dL 0.6-1. 3 Not Available [facility] [address] [facility] [address], [place], [address], 06/09/2023 14:16:22 06/09/20 23 06/09/2023 STONE BLOOD eGFR >60 mL/mi n_per _1.73 90-120 Not Available [facility] [address] [facility] [address], [place], [address], 06/09/2023 14:16:22 01/09/20 23 01/08/2023 XR, abdom en, 1 view No observ ation record ed. [email or web address] [facility] [address], [place], [address], 01/09/2023 11:28:43 01/09/20 23 01/08/2023 XR, pyelo gram No observ ation record ed. [facility] [address], [place], [address], 01/08/2023 15:30:30 01/21/20 23 01/17/2023 CT, abdom en + pelvi s, w/o contr ast No observ ation record ed. [facility] [address] [place], [address], 01/21/2023 11:04:01 Result Notes None recorded. Problems Name Status Onset Date Resolution Date Notes Provider Name and Address Organization Details Recorded Time Kidney stone Active 023 Justo Aquiles null, [facility] 3 10:33:44 Hydronephrosis Active 023 Justo Aquiles null, [facility] 3 10:35:26 Gastroesophageal reflux disease Active 023 Justo Aquiles null, [facility] 3 13:58:50 Hypertriglyceridemia Active 023 Leonardo Meath null, [facility] 3 15:24:48 Polyp of colon Active 023 Leonardo Meath null, [facility] 3 15:25:04 Anxiety Active 023 Leonardo Meath null, [facility] 3 15:25:12 Obstructive sleep apnea syndrome Active 023 [facility]ath null, [facility] 3 15:25:15 Elevated blood-pressure reading without diagnosis of hypertension Active 023 Leonardo Meath null, [facility] 3 15:25:27 Problem Notes None recorded. Procedures Surgical History Date Name Laterality Status Provider Name and Address Organization Details Recorded Time 07/28/20 23 Colonoscopy completed Leonardo kiser, [facility] 09/15/2023 15:25:52 06/09/20 23 Blood Draw/GERIATRIC CASE MANAGER/PSA RESULTS completed Shelly kiser [facility] 06/09/2023 11:45:07 06/09/20 23 24 Hour Urine Part 1 completed Shelly kiser [facility] 06/09/2023 11:52:10 02/18/20 23 Cystoscopy with foreign body/stent removal completed Jc Bonilla MD [address] [facility], [place], [address], [facility] 02/17/2023 12:41:00 repair of tendon completed Justo kiser, [facility] 01/01/2023 13:58:22 Knee arthroscopy/nasrin jennifer completed Justo kiser, [facility] 01/01/2023 13:58:33 Carpal tunnel surgery completed Justo kiser, [facility] 01/01/2023 13:58:39 Fragmenting of kidney stone completed Not Available Health Note 06/29/2023 16:30:46 Imaging Results Imaging Date Name Status LastModified by Organiz ation Details LastModified Time 01/08/2023 XR, abdomen, 1 view completed [email or web address] [place] [address] [facility] [address] [place], [address], 01/09/2023 11:28:43 01/08/2023 XR, pyelogram completed [email or web address] [place] [address] [facility] [address] [place], [address], 01/08/2023 15:30:30 01/17/2023 CT, abdomen + pelvis, w/o contrast completed [facility] [address] [place], [address], 01/21/2023 11:04:01 Procedure Notes None recorded. Medical Equipment None Reported. Allergies No known drug allergies Medications Name Sig Start Date Stop Date Status Note LastModified by Organization Details LastModified Time azelastin e 0.05 % eye drops Place 1 Drop into both eyes 2 times daily. 01/01 completed HN: Patient reports no longer taking Not Available Not Available Not Available tolterodi ne ER 4 mg capsule,e xtended release 24 hr TAKE 1 CAPSULE BY MOUTH ONCE DAILY NEEDED FOR BLADDER URGENCY FREQUENC Y OR SPASM 09/15 completed HN: Patient reports no longer taking Not Available Not Available Not Available phenazopy ridine 200 mg tablet TAKE 1 TABLET BY MOUTH THREE TIMES DAILY WITH FOOD FOR BURNING PAINFUL URINATIO N 09/15 completed HN: Patient reports no longer taking Not Available Not Available Not Available famotidin e 40 mg tablet TAKE ONE TABLET BY MOUTH ONCE DAILY active Not Available Not Available No t Available ciproflox acin 500 mg tablet 01/01 completed HN: Patient reports no longer taking Not Available Not Available Not Available ketorolac 10 mg tablet 01/01 completed HN: Patient reports no longer taking Not Available Not Available Not Available tamsulosi n 0.4 mg capsule Take 1 capsule every day by oral route. active Not Available Not Available No t Available pantopraz ole 40 mg tablet,de layed release TAKE ONE TABLET BY MOUTH ONCE DAILY active Not Available Not Available No t Available diclofena c sodium 50 mg tablet,de layed release TAKE 1 TABLET BY MOUTH THREE TIMES DAILY NEEDED FOR KIDNEY STENT PAIN 09/15 completed HN: Patient reports no longer taking Not Available Not Available Not Available azelastin e 137 mcg (0.1 %) nasal spray aerosol instill 2 Sprays into affected nostrils 2 times daily. 01/01 completed HN: Patient reports no longer taking Not Available Not Available Not Available oxybutyni n chloride 5 mg tablet 09/15 completed HN: Patient reports no longer taking Not Available Not Available Not Available ondansetr on 4 mg disintegr ating tablet DISSOLVE TWO TABLETS IN MOUTH TWO TIMES DAILY NEEDED active Not Available Not Available No t Available amoxicill in 875 mg-potass ium clavulana te 125 mg tablet TAKE ONE TABLET BY MOUTH TWICE DAILY FOR 7 DAYS 09/15 completed HN: Patient reports no longer taking Not Available Not Available Not Available oxycodone 5 mg tablet TAKE ONE TABLET BY MOUTH EVERY FOUR HOURS NEEDED FOR PAIN 09/15 completed HN: Patient reports no longer taking Not Available Not Available Not Available BD Ultra-Fin e Short Pen Needle 31 gauge x 5/16 09/15 completed HN: Patient reports no longer taking Not Available Not Available Not Available Victoza 2-Candelario 0.6 mg/0.1 mL (18 mg/3 mL) subcutane ous pen injector INJECT 1.2MG BY SUBCUTAN EOUS ROUTE TWICE DAILY. 09/15 completed HN: Patient reports no longer taking Not Available Not Available Not Available Ozempic 1 mg/dose (4 mg/3 mL) subcutane ous pen injector active Not Available Not Available Not Available Ozempic 0.25 mg or 0.5 mg (2 mg/3 mL) subcutane ous pen injector 09/15 completed HN: Patient reports no longer taking Not Available Not Available Not Available Vitals Date Recorded Body mass index (BMI) Body weight Body height Provider Name and Address Organization Details Last Updated DateTime 01/01/2023 42.4 kg/m2 138453.5594 23216 g 165.1 cm Not Available Health Note 01/01/2023 13:42:11 Date Recorded Body height Provider Name an d Address Organization Details Last Updated DateTime 02/17/2023 165.1 [facility]/17/[facility]23 12:04:21 Date Recorded Body mass index (BMI) Body height Body weight Provider Name and Address Organization Details Last Updated DateTime 06/30/2023 40.1 kg/m2 165.1 cm 899531.891 957994 g Not Available Health Note 06/30/2023 15:55:12 Social History Question Answer Notes LastModified by Organizat ion Details LastModified Time Tobacco Smoking Status Former Smoker Not Available Health Note 06/29/2023 16:30:46 What Is Your Level Of Alcohol Consumption? Occasional [email or web address] Information not available 06/29/2023 How Many Times Per Week Do You Consume Alcohol? Less Than 1 Time Per Week Information not available 05/23/2023 What Is Your Level Of Caffeine Consumption? Moderate [email or web address] Information not available 06/29/2023 How Much Tobacco Do You Chew? None [email or web address] Information not available 06/29/2023 Do You Or Have You Ever Used E-cigarettes Or Vape? Never Used Electronic Cigarettes [email or web address] Information not available 06/29/2023 When Did You Quit Smoking? 16+yearssincel astcigarette Information not available 06/30/2023 Preferred Language Canadian [email or web address] Information not available 01/01/2023 What Was The Date Of Your Most Recent Tobacco Screening? 06/30/2023 [email or web address] Information not available 06/29/2023 Have You Ever Been Counseled For Unhealthy Alcohol Use? No Information not available 05/23/2023 What Is Your Relationship Status? [email or web address] Information not available 06/29/2023 Are You Sexually Active? Yes [email or web address] Information not available 06/29/2023 Do You Or Have You Ever Used Smokeless Tobacco? Never Used Smokeless Tobacco [email or web address] Information not available 06/29/2023 Do You Use Any Illicit Or Recreational Drugs? No [email or web address] Information not available 06/29/2023 Has Tobacco Cessation Counseling Been Provided? Yes Information not available 06/30/2023 On What Date Was Tobacco Cessation Counseling Provided? 06/30/2023 Information not available 06/30/2023 How Many Years Have You Smoked Tobacco? 4 [email or web address] Information not available 06/29/2023 Do You Or Have You Ever Used Any Other Forms Of Tobacco Or Nicotine? No [email or web address] Information not available 01/01/2023 How Many Days In The Past Year Have You Consumed 5 Or More Drinks? 0 [id number] Information no t available 06/29/2023 Sex: Male Functional Status None recorded. Mental Status None recorded. Family History Relationship Description Onset Age of this Age Resolved Age Notes Mother Family history of diabetes mellitus Unspecified Relation Family history of prostate cancer 45 Medical History Condition Response High Blood Pressure N Kidney Stones Y Depression N Sexually Transmitted Infection N Cancer N Bleeding Disorder N Lung Disease N GERD/Acid Reflux Y High Cholesterol N Diabetes N Heart Disease N Immunizations Vaccine Type Date Status Provider Name and Address Organization Details Recorded Time SARS-COV-2 (COVID-19) vaccine, UNSPECIFIED 07/12/2021 completed Not Available [facility] 06/30/2023 15:55:58 influenza, injectable, quadrivalent 06/23/2019 completed SALVADOR Zavala [facility] 01/01/2023 13:44:29 COVID-19, mRNA, LNP-S, PF, 30 mcg/0.3 mL dose 06/28/2021 completed Justo Aquiles null, [facility] 01/01/2023 13:44:29 COVID-19, mRNA, LNP-S, PF, 30 mcg/0.3 mL dose 07/20/2021 completed Justo Aquiles null, [facility] 01/01/2023 13:44:29 Tdap 01/07/2013 completed Justo Aquiles null, [facility] 01/01/2023 13:44:29 Influenza, seasonal, injectable 07/16/2010 completed Justo Aquiles null, [facility] 01/01/2023 13:44:29 Influenza, seasonal, injectable 07/29/2003 completed Justo Aquiles null, [facility] 01/01/2023 13:44:29 Influenza, seasonal, injectable 08/24/2008 completed Justo Aquiles null, [facility] 01/01/2023 13:44:29 Influenza, seasonal, injectable, preservative free 06/27/2009 completed Justo Aquiles null, [facility] 01/01/2023 13:44:29 influenza, injectable, quadrivalent, preservative free 08/22/2015 completed Justo Aquiles null, [facility] 01/01/2023 13:44:29 Tdap 01/03/2023 completed Leonardo Regalado null, [facility] 05/23/2023 15:06:30 SARS-COV-2 (COVID-19) vaccine, UNSPECIFIED 06/29/2021 completed Not Available [facility] 06/30/2023 15:55:58 influenza, unspecified formulation 07/30/2020 completed Not Available [facility] 06/30/2023 15:55:58 Past Encounters Encounter ID Performer Location Encounter Start Date Encounter Closed Date Diagnosis/Indication [id number] VIV Scott [facility] [address] [facility] [address] [place] [address] 01/01/2023 13:42:06 01/01/2023 15:08:22 Ureteric stone [id number] Jc Bonilla MD [facility] [address] [place] [address] [address] [place] [address] 02/17/2023 12:02:31 02/17/2023 13:09:02 Kidney stone [id number] [facility] [address] [facility],[address] [place] [phone] 06/09/2023 11:41:14 06/09/2023 11:53:27 Kidney stone [id number] [facility] [address] [facility],[address] [place] [phone] 06/09/2023 11:43:55 06/09/2023 11:45:56 Kidney stone [id number] [facility] [address] [facility],[address] [place] [phone] 06/30/2023 15:54:30 06/30/2023 16:27:46 History of calculus of kidney Health Concerns Section Related Observation LastModified by Organization Detai ls LastModified Time None Recorded Concern Status LastModified by Organization Details LastModified Time None Recorded Advance Directives Directive None Recorded Payers Encounter Date Sequence Insurance Name Policy Number Policy Short Covered Member ID Short Member ID Guarantor Name 06/30/2023 1 [employer] [id number] Vince D Battles [id number] Vince D Battles 06/09/2023 1 [employer] [id number] Vince D Battles [id number] Vince D Battles 06/08/2023 1 [employer] [id number] Vince D Battles [id number] Vince D Battles 02/17/2023 1 [employer] [id number] Vince D Battles [id number] Vince D Battles 01/01/2023 1 [employer] [id number] Vince D Battles [id number] Vince D Battles Notes Date Note Type Note Provider Name and Address Organization Details Recorded Time 01/01/2023 text/html HPI Notes: 42 ye ar old male with history of ureteric stone presents for initial evaluation. Vince is new to [facility]. He was seen on 12/28/22 at the ED for pain. He first noted left abdominal pain on Friday, and then presented to the emergency department on Friday. He states the pain then started to radiate into his left flank. While he was in the emergency department he was given Toradol and his pain was well managed. He was discharged with tamsulosin, ciprofloxacin and ketorolac. He states that his pain is better managed throughout the day, but gets worse at night and he has not been sleeping well. He is tolerating all medications well without side effects. UA was negative for UTI, he did have leukocytosis, 14. He otherwise was vitally stable and afebrile. CT imaging demonstrated a 6mm left proximal ureteric stone with moderate hydronephrosis. He was discharged with urological follow up. He denies fevers, nausea, vomiting. He does have intermittent chills in the evening but has not recorded any fevers. UA negative for UTI today. VIV Sctot [address] [facility],[address], [place], [address], [facility] 01/01/2023 15:00:13 02/17/2023 text/html HPI Notes: Patie nt had cystoscopy with attempted left ureteroscopy and stone basketing but unfortunately caliber of ureter is too narrow and would not allow passage of instruments beyond pelvic brim. Double-J stent was placed. This was done at [facility] on January 08, 2023. CT scan from 01/17/2023 still unfortunately shows a 5 mm stone lower pole left kidney. The left ureteral stent is in good position. No stones identified on the right side. Patient had cystoscopy with left ureteroscopy, holmium laser lithotripsy, stone basketing and left ureteral stent replacement at [facility] on February 05, 2023. Stone was broken up and to about 3 pieces and at least 2 larger fragments were removed. Patient does have significant narrowing of the ureter. Stone analysis showed 90% calcium oxalate monohydrate and 10% calcium oxalate dihydrate. Jc Bonilla MD [address] [facility],[address], [place], [address], [facility] 02/17/2023 12:43:38 06/30/2023 text/html HPI Notes: This is a 42 year old male who is here for the evaluation and management of nephrolithiasis CT imaging 12/28/2022 demonstrates an obstructing left proximal 6 mm ureteral stone with moderate hydronephrosis He is now s/p ureteroscopy with laser lithotripsy Stone analysis showed 90% calcium oxalate monohydrate and 10% calcium oxalate dihydrate. He has resonantly undergone metabolic evaluation which demonstrated low urinary volume, hypercalciuria, hyperuricuria, and hyperoxaluria Denies any recent flank pain or hematuria VIV Odonnell [address] [place] [address],[address], [place], [address], [facility] 06/30/2023 16:22:04
--- OUTSIDE RECORDS SUMMARY | 2023-11-14 03:31 | XMS_ITS | Clinical Summary ---
Author Name Unknown Organization [facility] Address [place], [place] [address] Care Team Providers Care Package Dyeing Machine Operator Name Role Phone Jaycob Jacobo DO Primary Care Provider [phone] Allergies Active Allergy Reactions Criticality Noted Date Comments Unlisted Allergen (Include Detail In Comments) Other - Describe In Comment Field 01/07/2023 In the past, a protein candy bar scraped the back of his throat, which caused swelling Pollen Extracts Runny Nose 12/25/2021 Medications Medication Sig Dispensed Refills Start Date End Date Status fluticasone (50 mcg per actuation) nasal solution (FLONASE)Indications :Chronic allergic rhinitis Inhale 2 Sprays to both nostrils once daily. 0 06/28/2021 Active cetirizine (ZYRTEC) 10 mg tabletIndications:Ch ronic allergic rhinitis Take 1 Tablet (10 mg) by mouth once daily. 0 06/28/2021 Active EPINEPHrine (EPIPEN) 0.3 mg/0.3 mL injection INJECT CONTENTS OF 1 PEN INTO THE MUSCLE FOR ONE DOSE NEEDED FOR ANAPHYLACTIC REACTION 0 12/27/2021 Active azelastine 137 mcg/actuation (ASTELIN) nasal sprayIndications:Sea jesus allergic rhinitis due to pollen Inhale 2 Sprays into affected nostril(s) 2 times daily. 30 mL 11 01/14/2022 Active azelastine 0.05% ophthalmic (OPTIVAR) 0.05 % ophthalmic solutionIndications: Other chronic allergic conjunctivitis of both eyes Place 1 Drop into both eyes 2 times daily. 6 mL 11 01/14/2022 Active CPAPIndications:Obst ructive sleep apnea CPAP machine for home use at pressure 5-15 cmw, nasal mask x1/3month with nasal cushion x2/mo 1 Each 11 02/28/2022 Active ondansetron (ZOFRAN ODT) 4 mg disintegrating tablet DISSOLVE TWO TABLETS IN MOUTH TWO TIMES DAILY NEEDED 0 01/01/2023 Active phenazopyridine (PYRIDIUM) 200 mg tabletIndications:Olu estrada Take 1 Tablet (200 mg) by mouth 3 times daily with food if needed for burning painful urination. 21 Tablet 0 01/08/2023 Active tamsulosin (FLOMAX) 0.4 mg capsuleIndications:Jesusita estrada Take 1 Capsule (0.4 mg) by mouth once daily after a meal. 30 Capsule 0 01/09/2023 Active oxybutynin (DITROPAN) 5 mg tabletIndications:Olu estrada Take 1 Tablet (5 mg) by mouth three times daily. 60 Tablet 0 01/09/2023 Active pen needle, diabetic (Pen Needle) 31 gauge x 5/16Indications:Mor bid obesity with BMI of 40.0-44.9, adult (HC) For administering insulin at home. 100 Each 0 02/17/2023 Active pantoprazole (PROTONIX) 40 mg delayed-release tabletIndications:Eo sinophilic esophagitis Take 1 Tablet (40 mg) by mouth once daily. 90 Tablet 2 04/12/2023 Active semaglutide (Ozempic) 2 mg/dose (8 mg/3 mL) penIndications:Morbi d obesity with BMI of 40.0-44.9, adult (HC) Inject 0.75 mL (2 mg) subcutaneous once weekly. 3 mL 11 07/03/2023 Active Active Problems Problem Noted Date Diagnosed Date Colon polyp 08/01/2023 Overview: Colonoscopy 07/2023 TA, repeat in 7 years, propofol Chronic allergic rhinitis 06/28/2021 Hypertriglyceridemia 03/08/2019 Eosinophilic esophagitis 08/27/2017 Overview: EGD 07/2017 EoE, try omeparzole Morbid obesity with BMI of 40.0-44.9, adult 04/29 Renal calculus, left 03/29/2011 Overview: 03/26/11 ROCK AHI-35 06/10/2010 06/18/2010 Anxiety state, unspecified 09/01/2008 Enthesopathy of ankle and tarsus, unspecified Elevated BP without diagnosis of hypertension Resolved Problems Problem Noted Date Diagnosed Date Resolved Date INJURY, CRUSHING, ANKLE 11/19/200002/28 Immunizations Name Administration Dates Next Due COVID-19 vaccine (PerSayBio NTech 30mcg/0.3mL) PF, MDV 07/20/2021,06/28/2021 Influenza, IIV3 (Age >=3 years) 06/23/20 19,07/16/2010,08/24/2008,08/29/20 07 Influenza, IIV4 07/03/2023,08/22/2015 Td (Age >=7 Years) 03/22/2005 Tdap 01/03/2023,01/07/2013 Family History Medical History Relation Name Comments Other Father born 1955 - MVA Heart Disease Maternal Grandfather a t 50 from [place] Cancer-colon Maternal Uncle at 50 yo Diabetes Mother Hypertension Mother born 1955 Other Mother lupus Anesthesia Problem Neg. Cancer Paternal Uncle pancreatic in mid 50's Relation Name Status Comments Father Maternal Grandfather Maternal Uncle Mother Neg. Paternal Uncle Social History Tobacco Use Types Packs/Day Years Used Date Smoking Tobacco: Former Cigarettes Q uit: 09/29/1999 Smokeless Tobacco: Never Tobacco Cessation:Counseling Given: Yes Alcohol Use Standard Drinks/Week Comments Yes 0 (1 standard drink = 0.6 oz pur e alcohol) rare- 2 times per month PHQ-2 Answer Date Recorded PHQ-2 TOTAL SCORE 0 01/03/2023 Social Connections Answer Date Recorded Frequency of Communication with Friends and Fami ly 0 07/21/2023 Financial Resource Strain Answer Date R ecorded Difficulty of Paying Living Expenses 3 07/21/2023 Difficulty of Paying Living Expenses Not on file 07/21/2023 Food Insecurity Answer Date Recorded Worried About Running Out of Food in the Last Ye ar 1 07/21/2023 Transportation Needs Answer Date Record ed Lack of Transportation (Medical) 1 07/21/2023 Housing Stability Answer Date Recorded Unable to Pay for Housing in the Last Year 1 07/21/2023 Sex and Gender Information Value Date Recorded Sex Assigned at Not on file Gender Identity Not on file Sexual Orientation Not on file Obstetrics History Last Filed Vital Signs Vital Sign Reading Time Taken Comments Blood Pressure 136/81 07/21/2023 3:53 PM CDT Pulse 72 07/21/2023 3:53 PM CDT Temperature 36.7 ??C (98 ??F) 07/21/2023 3:53 PM CDT Respiratory Rate 18 01/09/2023 7:20 AM CDT Oxygen Saturation 96% 07/21/2023 3:53 PM CDT Inhaled Oxygen Concentration - - Weight 112.1 kg (247 lb 1.6 oz) 07/21/2023 3:53 PM CDT Height 164.5 cm (5' 4.76) 07/03/2023 3:49 PM CD T Body Mass Index 41.42 07/03/2023 3:49 PM CDT Plan of Treatment Health Maintenance Due Date Last Done Comments COVID-19 vaccine series ( season) 2023 07/20/2021, 06/28/2021 Depression screening for age 12+ 01/04/2024 01/03/2023, 01/01/2023, 06/28/2021, Additional history exists BMI (ht and wt on same day) for age 18+ 07/03/2024 07/03/2023, 01/03/2023, 01/29/2022, Additional history exists Lipids for age 45-75 01/04/2028 01/03/2023, 06/28/2021, 03/08/2019, Additional history exists Colonoscopy through age 75 07/28/2030 07/28/2023, Tetanus booster 01/03/2033 01/03/2023, 12/28, 03/22/2005 HIV for age 15-65 Completed 01/03/2023 Hepatitis C screening for age 18-79 Completed 01/03/2023 Tdap Completed 01/03/2023, 01/07/2013 Influenza for age 9-49 Completed , 06/23/2019, 08/22/2015, Additional history exists Pneumococcal series for age 6-64 Aged Out No longer eligible based on patient's age to complete this topic Medical Devices Implanted Type Area Dehydrogenation Converter Operator Device Identifier Shelf Expiration Date Model / Serial / Lot [id number] - [id number] Implanted:Qty: 1 on 09/06/2015 by Reji Ballard MD at [facility] Ortho Imp.,Screw s & Plates Left: Shoulder 04/28/2017 [id number] / / [id number] Description:Tenodesis Screw BioComposite 6.25 x 15 mm Bio-Tendo Disp Kit [id number] - [id number] Implanted:Qty: 1 on 09/06/2015 by Reji Ballard MD at [facility] Left: Shoulder R-ARTHREX 04/06/2019 AR-[id number] / / [id number] Stent Uret [id number] Percuflex Hydroplus - [id number] Implanted:Qty: 1 on 01/08/2023 by Jc Bonilla MD at [facility] Left: Ureter [facility] 08/28/2025 [id number] / / [id number] Advance Directives Latest Code Status on File Code Status Date Activated Date Inactivated Comments Full Code 01/08/2023 10:47 AM 01/09/2023 4:01 PM Question Answer Comments Code Status Discussion: Reviewed Preferences Code Status History Code Status Date Activated Date Inactivated Comments Full Code 09/06/2015 5:05 PM 09/06/2015 9:50 PM Question Answer Comments Code Status Discussion: Not Discussed Full Code 09/06/2015 12:36 PM 09/06/2015 5:05 PM Care Teams Package Dyeing Machine Operator Relationship Specialty Start Date End Date Jaycob Jacobo DO [address] [place] [address] PCP - General Family Practice 02/03/23
--- OUTSIDE RECORDS SUMMARY | 2023-11-14 03:31 | XMS_ITS | Clinical Summary ---
Author Name Unknown Organization [facility] Address [facility] [place] [address] Care Team Providers Care Restoration Officer Name Role Phone Jaycob Jacobo Primary Care Provider [phone] Allergies No known active allergies Medications Medication Sig Dispensed Refills Start Date End Date Status order for DMEIndications:Plant ar fascial fibromatosis Equipment being ordered: night splint 1 Device 0 08/19/2016 Active tamsulosin (FLOMAX) 0.4 MG capsule Take 0.4 mg by mouth daily 0 Active pantoprazole sodium (PROTONIX) 40 MG packet Take 1 packet by mouth daily 0 Active famotidine (PEPCID) 40 MG tablet Take 40 mg by mouth daily 0 Active oxyCODONE (ROXICODONE) 5 MG tabletIndications:Re nal calculus, left Take 1-2 tablets (5-10 mg) by mouth every 4 hours as needed for moderate to severe pain 12 tablet 0 02/05/2023 Active senna-docusate (SENOKOT-S/PERICOLAC E) 8.6-50 MG tabletIndications:Re nal calculus, left Take 1-2 tablets by mouth 2 times daily To help prevent constipation. 30 tablet 0 02/05/2023 Active phenazopyridine (PYRIDIUM) 200 MG tabletIndications:Re nal calculus, left Take 1 tablet 3 times a day with food if needed for burning painful urination. 12 tablet 0 02/05/2023 Active tolterodine ER (DETROL LA) 4 MG 24 hr capsuleIndications:R enal calculus, left Take 1 tablet daily if needed for bladder urgency frequency or spasm. 15 capsule 0 02/05/2023 Active diclofenac (VOLTAREN) 50 MG EC tabletIndications:Re nal calculus, left Take 1 tablet 3 times a day if needed for kidney stent pain. 40 tablet 0 02/05/2023 Active Active Problems Problem Noted Date Diagnosed Date Renal calculus, left 01/31/2023 Immunizations Name Administration Dates Next Due COVID-19 MONOVALENT 12+ (Pfizer) 07/20/2021,06/01 Influenza (IIV3) PF 06/23/2019, 0,08/24/2008, 007,07/29/2003 Influenza Vaccine >6 months,quad, PF 08/22/2015 Influenza, seasonal, injectable, PF 06/27/2009 TDAP (Adacel,Boostrix) 01/03/2023,01/07/2013 Td (Adult), Adsorbed 03/22/2005 Social History Tobacco Use Types Packs/Day Years Used Date Smoking Tobacco: Former Smokeless Tobacco: Never Comments:quit in 2000 Alcohol Use Standard Drinks/Week Comments Not Currently 0 (1 standard drink = 0.6 oz pur e alcohol) Adolescent Education Answer Date Record ed Getting School Help Needed Not on file 07/05 Sex and Gender Information Value Date Recorded Sex Assigned at Not on file Gender Identity Not on file Sexual Orientation Not on file Last Filed Vital Signs Vital Sign Reading [...] Mass Index 42.41 02/05/2023 10:18 AM CDT Plan of Treatment Health Maintenance Due Date Last Done Comments ADVANCE CARE PLANNING 1978 ANNUAL REVIEW OF HM ORDERS 1978 CT COLONOGRAPHY 1978 FIT 1978 FLEX SIG 1978 GLUCOSE 1978 HEPATITIS B IMMUNIZATION (1 of 3 - 3-dose series) 1978 sDNA (Cologuard) 1978 COLONOSCOPY 1988 COLORECTAL CANCER SCREENING 1988 HIV SCREENING 1993 HEPATITIS C SCREENING 1996 LIPID 2018 YEARLY PREVENTIVE VISIT 06/28/2022 06/28/2021 COVID-19 Vaccine (3 - 2022- season) 2023 07/20/2021, 06/28/2021 INFLUENZA VACCINE (#1) 2023 9, 08/22/2015, 07/16/2010, Additional history exists PHQ-2 (once per calendar year) 2023 DTAP/TDAP/TD IMMUNIZATION (3 - Td or Tdap) 01/03/2033 01/03/2023, 01/07/2013, 03/22/2005 HPV IMMUNIZATION Aged Out No longer e ligible based on patient's age to complete this topic IPV IMMUNIZATION Aged Out No longer e ligible based on patient's age to complete this topic MENINGITIS IMMUNIZATION Aged Out No l onger eligible based on patient's age to complete this topic Pneumococcal Vaccine: Pediatrics (0 to 5 Years) and At-Risk Patients (6 to 64 Years) Aged Out No longer eligible based on patient's age to complete this topic RSV MONOCLONAL ANTIBODY Aged Out No l onger eligible based on patient's age to complete this topic Medical Devices Implanted Type Area Manufacturing Weaver Device Identifier Shelf Expiration Date Model / Serial / Lot Stent Ureteral Percuflex Plus [id number] - [id number] Implanted:Qty: 1 on 02/05/2023 by Jc Bonilla MD at [facility] Stent [employer] [id number] 10/17/2025 [id number] / / [id number] Care Teams Restoration Officer Relationship Specialty Start Date End Date Jaycob Jacobo DO PCP - General 01/29/23
--- OUTSIDE RECORDS SUMMARY | 2023-11-14 03:31 | XMS_ITS | Encounter Summary ---
Author Name Unknown Organization [place] Address [address] [facility] [place] [address] Care Team Providers Care Metallurgical Engineering Technician Name Role Phone OdalisPhuongrenetta MORENO Primary Care Provider [phone] Reason for Visit * Auth/Cert (Routine) Specialty Diagnoses / Procedures Referred By Peggy campos Referred To Contact Surgery Diagnoses Calculus of kidney Calculus of kidney [N20.0] Procedures PA LITHOLAPAXY BLADDER STONE <2.5CM PA REMOVE BLADDER STONE,>2.5CM PA CYSTO/URETERO W/LITHOTRIPSY &INDWELL STENT INSRT CYSTOSCOPY WITH LEFT URETEROSCOPY, HOLMIUM LASER LITHOTRIPSY, STONE BASKETING AND LEFT URETERAL STENT REPLACEMENT [facility] [address] [place] [phone] Referral ID Status Reason Start Date Expiration Date Visits Re quested Visits Authorized [id number] 1 1 Encounter Details Date Type Department Care Team (Late st Contact Info) Description 02/05/2023 11:24 AM CDT [facility] [address] [place] [address] Beata Bowling MD [address] [place] [address] [id number] Anesthesia Record Procedure Summary Procedure Name Responsible Anesthesiologist Anesthesia Start Time Anesthesia Stop Time CYSTOSCOPY WITH LEFT URETEROSCOPY, HOLMIUM LASER LITHOTRIPSY, STONE BASKETING AND LEFT URETERAL STENT REPLACEMENT (Left: Ureter) Beata Bowling MD 02/05/23 1124 02/05/23 1318 Events Date Time Event Comment 02/05/2023 1014 STAFF AIR TACTICAL OFFICER Ready for Procedure 1103 1124 An Start 1124 An Start Data 1124 AN REASSESS I attest that I have identified and re-evaluated the patient immediately before the induction of anesthesia and I am satisfied that the anesthetic plan is suitable for the patient's condition and procedure. The first vital signs recorded are pre- induction. Krisyt Yates APRN STAFF AIR TACTICAL OFFICER 1129 An Induction 1133 An Intubation 1134 Anesthesia Ready for Procedu re 1136 Quick Note Laser eye goggl es on for protection. 1308 AN Extubation All extubation criteria met prior to removal. 1310 an stop data 1318 An Stop Electronically signed by Kristy Yates APRN STAFF AIR TACTICAL OFFICER on February 05, 2023 1:18 PM Meds Name Total midazolam 1 mg/mL 2 mg fentaNYL 50 mcg/mL 100 mcg lidocaine 1% 20 mg propofol 10 mg/mL 200 mg propofol drip mcg/kg/min 644.47 mg rocuronium 10 mg/mL 40 mg ePHEDrine 5 mg/mL in NS 15 mg phenylephrine (LACEY-SYNEPHRINE) injection 200 mcg dexamethasone (DECADRON) 10 mg/mL 10 mg ondansetron 2 mg/mL 4 mg sugammadex (BRIDION) 200mg/2mL 200 mg ceFAZolin Sodium (ANCEF) injection 2 g 2 g dexmedetomidine (PRECEDEX) 4 mcg/mL bolu s 20 mcg LR 900 mL * Agents Name NO HELIOX O2 N2O Air Exp Sevoflurane Exp Isoflurane Exp Desflurane Exp N2O Ins Sevoflurane Ins Isoflurane Ins Desflurane O2 Auxiliary * Blood No blood administrations on file. Lines, Drains, and Airways Type Details Placement Removal Incision/Surgical Site 02/05/23; 1202; Penis 07/21 1202 by Sarah Lange, SAVANNAH Peripheral IV 02/05/23; 1015; 20 G ; BD; Left; Hand; Alcohol; None; 1; Tolerated well 02/05/23 1015 by Rebecca Boothe RN 02/05/23 1433 by Kristy Brice, SAVANNAH ETT Placement Date: 02/05/23; Placement Time: 113 (created via procedure documentation); Mask Ventilation: 3; Induction Type: Intravenous; Ease of Intubation: Easy; Technique: Direct laryngoscopy; ETT Type: Single; Tube Size: 8 mm; DL Blade Size: MAC 3; Grade View: 1; Adjucts: Stylet; Placement Person: STAFF AIR TACTICAL OFFICER Student; Attempts: 1; Depth: 23 cm 02/05/23 1133 by Beata Bowling MD 02/05/23 1308 by Kristy Yates APRN STAFF AIR TACTICAL OFFICER documented in this encounter Social History Tobacco [...] AM CDT documented as of this encounter OR Notes * Anesthesia Postprocedure Evaluation - Beata Bowling MD - 02/05/2023 1:53 PM CDT Patient: Vince Johnston Procedure: Procedure(s): CYSTOSCOPY WITH LEFT URETEROSCOPY, HOLMIUM LASER LITHOTRIPSY, STONE BASKETING AND LEFT URETERAL STENT REPLACEMENT Anesthesia Type: General Note: Disposition: Outpatient Postop Pain Control: Uneventful Sign Out: Well controlled pain PONV: No Neuro/Psych: Uneventful Sign Out: Acceptable/Baseline neuro status Airway/Respiratory: Uneventful Sign Out: Acceptable/Baseline resp. status CV/Hemodynamics: Uneventful Sign Out: Acceptable CV status; No obvious hypovolemia; No obvious fluid overload Other NRE: NONE DID A NON-ROUTINE EVENT OCCUR? No Last vitals: Vitals Value Taken Time BP 129/71 02/05/23 1336 Temp 36.4 ??C (97.6 ??F) 02/05/23 1330 Pulse 92 02/05/23 1335 Resp 22 02/05/23 1334 SpO2 92 % 02/05/23 1335 Vitals shown include unvalidated device data. Electronically Signed By: Beata Bowling MD February 05, 2023 1:53 PM * Anesthesia Procedure Notes - Kristy Yates APRN CRNA - 02/05/2023 11:42 AM CDTAssociated Order(s): Airway Airway Patient location during procedure: OR Procedure Start/Stop Times: 02/05/2023 11:33 AM Staff - Anesthesiologist: Beata Bowling MD STAFF AIR TACTICAL OFFICER: Kristy Yates APRN CRNA Other Anesthesia Staff: Gómez Moran Performed By: SRNA and with CRNAs Procedure performed by resident/fellow/STAFF AIR TACTICAL OFFICER in presence of a teaching physician. Consent for Airway Urgency: elective Indications and Patient Condition Indications for airway management: david-procedural Induction type:intravenous Mask difficulty assessment: 3 - difficult mask (inadequate, unstable, or two providers) +/- NMBA Final Airway Details Final airway type: endotracheal airway Successful airway: ETT - single Endotracheal Airway Details ETT size (mm): 8.0 Cuffed: yes Successful intubation technique: direct laryngoscopy DL Blade Type: MAC 3 Grade View of Cords: 1 Adjucts: stylet Position: Right Measured from: gums/teeth Secured at (cm): 23 Bite block used: None Post intubation assessment Placement verified by: capnometry, equal breath sounds and chest rise Number of attempts at approach: 1 Number of other approaches attempted: 0 Secured with: silk tape Ease of procedure: easy Dentition: Intact and Unchanged Dental guard used and removed. Dental Guard Type: Proguard Red. Medication(s) Administered Medication Administration Time: 02/05/2023 11:33 AM * Anesthesia Preprocedure Evaluation - Beata Bowling MD - 02/04/2023 7:23 PM CDT Anesthesia Pre-Procedure Evaluation Patient: Vince Johnston : 1980 Procedure : Procedure(s): CYSTOSCOPY WITH LEFT URETEROSCOPY, HOLMIUM LASER LITHOTRIPSY, STONE BASKETING AND LEFT URETERAL STENT REPLACEMENT Past Medical History: Diagnosis Date ??? Gastroesophageal reflux disease ??? Renal disease ??? Sleep apnea History reviewed. No pertinent surgical history. No Known Allergies Social History Tobacco Use ??? Smoking status: Former ??? Smokeless tobacco: Never ??? Tobacco comments: quit in 2000 Vaping Use ??? Vaping status: Not on file Substance Use Topics ??? Alcohol use: Not Currently Wt Readings from Last 1 Encounters: 08/19/16 108.4 kg (239 lb) Anesthesia Evaluation Pt has had prior anesthetic. Type: General, Regional and MAC. History of anesthetic complications ROS/MED HX ENT/Pulmonary: (+) sleep apnea, moderate, uses CPAP, ROCK risk factors, hypertension, obese, (-) tobacco use, asthma and COPD Neurologic: (+) migraines, (-) no seizures, no CVA, no TIA, no Parkinson's disease and no Multiple Sclerosis Cardiovascular: Comment: Elevated BP w/o hypertension (-) arrhythmias and ICD METS/Exercise Tolerance: 4 - Raking leaves, gardening Hematologic: - neg hematologic ROS Musculoskeletal: - neg musculoskeletal ROS GI/Hepatic: (+) GERD, Symptomatic, (-) hiatal hernia, hepatitis and liver disease Renal/Genitourinary: (+) Nephrolithiasis , (-) BPH Endo: (+) Obesity, Psychiatric/Substance Use: (+) psychiatric history anxiety Infectious Disease: - neg infectious disease ROS Malignancy: - neg malignancy ROS Other: Physical Exam Airway airway exam normal Mallampati: II TM distance: > 3 FB Neck ROM: full Mouth opening: > 3 cm Respiratory Devices and Support Dental (+) Modest Abnormalities - crowns, retainers, 1 or 2 missing teeth Cardiovascular cardiovascular exam normal Rhythm and rate: regular and normal Pulmonary pulmonary exam normal breath sounds clear to auscultation OUTSIDE LABS: CBC: No results found for: WBC, HGB, HCT, PLT BMP: No results found for: NA, POTASSIUM, CHLORIDE, CO2, BUN, CR, GLC COAGS: No results found for: PTT, INR, FIBR POC: No results found for: BGM, HCG, HCGS HEPATIC: No results found for: ALBUMIN, PROTTOTAL, ALT, AST, GGT, ALKPHOS, BILITOTAL, BILIDIRECT, JACQUELINE OTHER: No results found for: PH, LACT, A1C, DESTINEY, PHOS, MAG, LIPASE, AMYLASE, TSH, T4, T3, CRP, SED Anesthesia Plan ASA Status: 3 NPO Status: NPO Appropriate Anesthesia Type: General. - Airway: ETT Induction: Intravenous. Maintenance: Balanced. Consents Anesthesia Plan(s) and associated risks, benefits, and realistic alternatives discussed. Questions answered and patient/patient service representative(s) expressed understanding. - Discussed: - Discussed with: Patient - Extended Intubation/Ventilatory Support Discussed: No. - Patient is DNR/DNI Status: No Use of blood products discussed: No . Postoperative Care Pain management: IV analgesics, Oral pain medications. PONV prophylaxis: Ondansetron (or other 5HT-3) Comments: Beata Bowling MD documented in this encounter Miscellaneous Notes * Anesthesia Care Transfer Note - Kristy Yates APRN CRNA - 02/05/2023 1:18 PM CDT Patient: Vince Johnston Procedure: Procedure(s): CYSTOSCOPY WITH LEFT URETEROSCOPY, HOLMIUM LASER LITHOTRIPSY, STONE BASKETING AND LEFT URETERAL STENT REPLACEMENT Diagnosis: Calculus of kidney [N20.0] Diagnosis Additional Information: No value filed. Anesthesia Type: General Note: Oropharynx: oropharynx clear of all foreign objects and spontaneously breathing Level of Consciousness: awake Oxygen Supplementation: face mask Level of Supplemental Oxygen (L/min / FiO2): 6 Independent Airway: airway patency satisfactory and stable Dentition: dentition unchanged Vital Signs Stable: post-procedure vital signs reviewed and stable Report to RN Given: handoff report given Patient transferred to: PACU Handoff Report: Identifed the Patient, Identified the Reponsible Provider, Reviewed the pertinent medical history, Discussed the surgical course, Reviewed Intra-OP anesthesia mangement and issues during anesthesia, Set expectations for post-procedure period and Allowed opportunity for questions andacknowledgement of understanding Vitals: Vitals Value Taken Time BP 139/74 02/05/23 1315 Temp 36.7 ??C (98 ??F) 02/05/23 1315 Pulse 93 02/05/23 1316 Resp 25 02/05/23 1316 SpO2 96 % 02/05/23 1316 Vitals shown include unvalidated device data. Electronically Signed By: Kristy Yates APRN CRNA February 05, 2023 1:18 PM documented in this encounter Plan of Treatment Not on file documented as of this encounter Procedures Procedure Name Priority Date/Time Associated Diagnosis Comments ANE AIRWAY ETT PERFORMABLE Routine 02/05/2023 11:33 AM CDT documented in this encounter Results * ANE AIRWAY ETT PERFORMABLE (02/05/2023 11:33 AM CDT) Narrative Kristy Yates APRN STAFF AIR TACTICAL OFFICER - 02/05/2023 11:33 AM CDT Kristy Yates APRN STAFF AIR TACTICAL OFFICER ? 02/05/2023 11:43 AM Airway ? Patient location during procedure: OR ? Procedure Start/Stop Times: 02/05/2023 11:33 AM Staff - ? Anesthesiologist: ??Beata Bowling MD ? STAFF AIR TACTICAL OFFICER: Kristy Yates APRN CRNA ? Other Anesthesia Staff: Gómez Moran ? Performed By: SRNA and with CRNAs ? Procedure performed by resident/fellow/STAFF AIR TACTICAL OFFICER in presence of a teaching physician. Consent for Airway ? Urgency: elective Indications and Patient Condition ? Indications for airway management: david-procedural ? Induction type:intravenous ? Mask difficulty assessment: 3 - difficult mask (inadequate, unstable, or two providers) +/- NMBA Final Airway Details ? Final airway type: endotracheal airway ? Successful airway: ETT - single Endotracheal Airway Details ? ETT size (mm): 8.0 ? Cuffed: yes ? Successful intubation technique: direct laryngoscopy ? DL Blade Type: MAC 3 ? Grade View of Cords: 1 ? Adjucts: stylet ? Position: Right ? Measured from: gums/teeth ? Secured at (cm): 23 ? Bite block used: None Post intubation assessment ? Placement verified by: capnometry, equal breath sounds and chest rise ? Number of attempts at approach: 1 ? Number of other approaches attempted: 0 ? Secured with: silk tape ? Ease of procedure: easy ? Dentition: Intact and Unchanged ? Dental guard used and removed. Dental Guard Type: Proguard Red. Medication(s) Administered Medication Administration Time: 02/05/2023 11:33 AM eBata RODRIGUEZ ANESTHESIA documented in this encounter Visit Diagnoses Not on filedocumented in this encounter Administered Medications Inactive Administered Medications - up to 3 most recent administrations Medication Order MAR Action Action Date Dose Rate Site ceFAZolin Sodium (ANCEF) injection 2 g Routine, 2 g, Intravenous, PRE-OP/PRE-PROCEDURE, Starting on Fri02/05/23 at 1006, For 1 dose, Give first dose within 1 hour PRIOR to incision. If patient weight is greater than or equal to 120 kg increase dose to 3 g., Indications: Perioperative Pharmacoprophylaxis, Pre-procedure $Given 02/05/2023 11:24 AM CDT 2 g dexamethasone PF (DECADRON) injection Intravenous, PRN, Administer over 1 Minutes, Starting on Fri02/05/23 at 1129, Anesthesia Intra-op $Given 02/05/2023 11:29 AM CDT 10 mg dexmedetomidine (PRECEDEX) 4 mcg/mL bolus Intravenous, CONTINUOUS PRN, Starting on Fri02/05/23 at 1204, Anesthesia Intra-op $Bolus 02/05/2023 12:10 PM CDT 12 mcg $New Bag 02/05/2023 12:04 PM CDT 8 mcg ePHEDrine injection Intravenous, PRN, Starting on Fri02/05/23 at 1146, Anesthesia Intra-op $Given 02/05/2023 11:49 AM CDT 10 mg $Given 02/05/2023 11:46 AM CDT 5 mg fentaNYL (PF) (SUBLIMAZE) injection Intravenous, PRN, Administer over 3-5 Minutes, Starting on Fri02/05/23 at 1129, Anesthesia Intra-op $Given 02/05/2023 11:29 AM CDT 100 mcg lactated ringers infusion Intravenous, CONTINUOUS PRN, Anesthesia Intra-op, Starting on Fri02/05/23 at 1124, Until Fri02/05/23 at 1318 $New Bag 02/05/2023 11:24 AM CDT lidocaine 1 % injection Intravenous, PRN, Starting on Fri02/05/23 at 1129, Anesthesia Intra-op $Given 02/05/2023 11:29 AM CDT 20 mg midazolam (VERSED) injection Intravenous, Administer over 2 Minutes, PRN, Starting on Fri02/05/23 at 1122, Anesthesia Intra-op $Given 02/05/2023 11:22 AM CDT 2 mg ondansetron (ZOFRAN) injection Intravenous, PRN, Administer over 2-5 Minutes, Starting on Fri02/05/23 at 1129, Anesthesia Intra-op $Given 02/05/2023 11:29 AM CDT 4 mg phenylephrine (LACEY-SYNEPHRINE) injection Intravenous, CONTINUOUS PRN, Starting on Fri02/05/23 at 1140, Anesthesia Intra-op $Bolus 02/05/2023 11:42 AM CDT 100 mcg $New Bag 02/05/2023 11:40 AM CDT 100 mcg propofol (DIPRIVAN) infusion Intravenous, CONTINUOUS PRN, Starting on Fri02/05/23 at 1135, Anesthesia Intra-op Rate/Dose Change 02/05/2023 12:44 PM CDT 50 mcg/kg/min 34.68 mL/hr $New Bag 02/05/2023 11:35 AM CDT 75 mcg/kg/min 52.02 mL/ hr propofol (DIPRIVAN) injection 10 mg/mL vial Intravenous, PRN, Starting on Fri02/05/23 at 1129, Anesthesia Intra-op $Given 02/05/2023 11:29 AM CDT 200 mg rocuronium injection Intravenous, PRN, Starting on Fri02/05/23 at 1129, Anesthesia Intra-op $Given 02/05/2023 11:29 AM CDT 40 mg sugammadex (BRIDION) injection Intravenous, PRN, Starting on Fri02/05/23 at 1257, Anesthesia Intra-op $Given 02/05/2023 12:57 PM CDT 200 mg documented in this encounter Care Teams Metallurgical Engineering Technician Relationship Specialty Start Date End Date Jaycob Jacobo DO PCP - General 01/29/23 documented as of this encounter
--- OUTSIDE RECORDS SUMMARY | 2023-11-14 03:31 | XMS_ITS | Referral Summary ---
Author Name Unknown Organization [place] Address [facility] [place] [address] Care Team Providers Care Lean Specialist Name Role Phone Jaycob Jacobo Primary Care Provider [phone] Allergies No known active allergies Medications Medication [...] 02/05/2023 10:18 AM CDT Plan of Treatment Not on file Medical Devices Implanted Type Area Tank Washer Device Identifier Shelf Expiration Date Model / Serial / Lot Stent Ureteral Percuflex Plus [id number] - [id number] Implanted:Qty: 1 on 02/05/2023 by Jc Bonilla MD at [facility] [id number] 10/17/2025 [id number] Care Teams Lean Specialist Relationship Specialty Start Date End Date Jaycob Jacobo DO PCP - General 01/29/23
[2023-11-14 03:41] LABS: Basophils Absolute Auto 0.05 K/uL (0.00-0.30); Basophils Percent Auto 0.5 % (0.0-3.0); Eosinophils Absolute Auto 0.17 K/uL (0.00-0.50); Eosinophils Percent Auto 1.6 % (0.0-7.0); Hematocrit 53.1 % (37.0-53.0); Hemoglobin* 17.4 gm/dL (13.5-17.5); Immature Granulocytes Abs Auto 0.02 K/uL (0.00-0.30); Immature Granulocytes Pct Auto 0.2 %; Lymphocytes Percent Auto 17.8 % (20-44); Mean Corpuscular HGB Conc 33 gm/dL (32-36); Mean Corpuscular Hemoglobin 28 pg (26-34); Mean Corpuscular Volume 87 fL (80-100); Monocytes Percent Auto 6.9 % (0.0-11.0); Platelet Count* 243 K/uL (140-440); RDW Coefficient of Variation % 12.9 % (11.5-15.5); Red Blood Count 6.13 m/uL (4.30-5.90); White Blood Count* 10.33 K/uL (4.50-11.00)
[2023-11-14 03:42] LABS: Slide Review Reflex No
[2023-11-14] MEDS: KETOROLAC 30 MG/ML inj IVP (03:49)
[2023-11-14 03:53] LABS: Albumin* 4.7 g/dL (3.3-5.0); Chloride* 106 mmol/L (96-114); Sodium* 140 mmol/L (135-149)
[2023-11-14 03:54] LABS: Potassium* 4.5 mmol/L (3.6-5.1)
[2023-11-14 03:56] LABS: Alkaline Phosphatase* 54 U/L (40-150); Anion Gap 12 mEq/L (7-15); Aspartate Amino Transferase* 33 U/L (12-35); Bilirubin Total* 0.6 mg/dL (0.1-1.5); Blood Urea Nitrogen* 16 mg/dL (5-24); Carbon Dioxide* 22 mmol/L (20-32); Creatinine* 0.9 mg/dL (0.5-1.5); Est. Creatinine Clearance* 90.16; Estimated Glomerular Filt Rate 107 ml/min; Lipase* 137 U/L (23-300); Total Protein* 8.2 g/dL (6.0-8.3)
[2023-11-14 03:57] LABS: Alanine Aminotransferase* 37 U/L (4-50); Calcium* 9.6 mg/dL (8.4-10.6); Glucose* 123 mg/dL (60-115)
--- NOTE | 2023-11-14 04:44 | ED_ITS ---
HPI - Abdominal Pain General Date Seen: 11/14/23 Chief Complaint: Abdominal Pain Stated Complaint: Abdominal Pain Time Seen by Provider: 11/14/23 03:00 Source: patient and family Mode of arrival: ambulatory Limitations: no limitations History of Present Illness HPI narrative: Patient is a 43-year-old male who was in his usual state of health until about 3 hours after supper when he began having some right upper quadrant pain that radiated across his abdomen. He did vomit once. No fevers or chills. No dysuria, urgency, frequency. No history of gallstones. He does take Ozempic for weight loss and pre diabetes and has been on the med for almost a year. No history of GI side effects from this drug. He also takes Protonix for acid reflux and has found himself taking more Tums lately than he used to. No black or bloody stools. No diarrhea or constipation. He cooked pigs in a blanket for his son for dinner and ate some. His last Ozempic dose was six days ago. His past medical history significant for carpal tunnel release, two lumbar diskectomies, eye surgery, shoulder surgery, surgery for kidney stones. No history of hypertension although his blood pressure was quite elevated in the ER today. Related Data Home Medications Medication Instructions Recorded Confirmed pantoprazole 40 mg tablet,delayed 40 mg PO DAILY 12/28/22 11/14/23 release semaglutide 2 mg/dose (8 mg/3 mL) mg subcut 11/14/23 subcutaneous pen injector (Ozempic) Allergies Allergy/AdvReac Type Severity Reaction Status Date / Time No Known Drug Allergies Allergy Verified 11/14/23 03:10 Review of Systems Narrative Review of systems is outlined above otherwise noted to be negative. [facility] Social History Smoking Status: Former smoker Do you use any of these nicotine containing products: None Second hand tobacco smoke exposure: No How often do you have a drink containing alcohol: 2-4 times a month How many standard drinks containing alcohol do you have on a typical day: 1 or 2 How often do you have six or more drinks on one occasion: Never AUDIT-C Alcohol total score: 2 Non-prescribed substance use: denies use service: No Exam Narrative: Exam Narrative: Vitals noted. HEENT: Conjunctiva clear. Neck is supple without adenopathy, thyromegaly, carotid bruit. Lungs: Clear to auscultation in all rolle. No wheezes, rales, rhonchi. Heart: Regular rate and rhythm without murmur. Abdomen: Morbidly obese, Soft with mild epigastric discomfort. No guarding, rigidity, rebound. Bowel sounds are normal. No palpable masses. Extremities: No cyanosis or edema. Good distal pulses. Skin: No abnormalities noted of the exposed skin. Neurologic: Awake, alert, fully oriented. Neurologic exam is nonfocal. Const: Vital Signs, click to edit/add: Vital Signs - 24 hr 11/14/23 03:05 Temperature 97 F L Pulse Rate [Pulse Oximeter] 55 L Respiratory Rate 24 Blood Pressure [Ri ght Upper Arm] 193/105 H Pulse Oximetry 98 Oxygen Delivery Me thod Room Air Course Course ED Course: Patient was seen and examined. Labs and a CT of his abdomen are ordered. He is given Toradol 30 mg IV for help of his pain. Reevaluation(s) Reevaluation #1: CBC, BMP, LFTs, lipase are all normal. CT scan of his abdomen and pelvis with IV contrast is normal. He is given a GI cocktail and Bellamy one tablet with good relief of his pain. Vital Signs Vital signs: Initial Vital Signs Temperature 97 F L 11/14/23 03:05 Temperature Source Temporal Artery Scan 11/14/23 03:05 Pulse Rate 55 L 11/14/23 03:05 Pulse Rhythm Regular 11/14/23 03:05 Pulse Strength 3+ Normal 11/14/23 03:05 Respiratory Rate 24 11/14/23 03:05 Blood Pressure 193/105 H 11/14/23 03:05 Blood Pressure Mean 134 H 11/14/23 03:05 Blood Pressure Position Sitting 11/14/23 03:05 Pulse Oximetry 98 11/14/23 03:05 Oxygen Delivery Method Room Air 11/14/23 03:05 Vital Signs Temperature 97 F L 11/14/23 03:05 Pulse Rate 55 L 11/14/23 03:05 Respiratory Rate 24 11/14/23 03:05 Blood Pressure 193/105 H 11/14/23 03:05 Pulse Oximetry 98 11/14/23 03:05 Oxygen Delivery Method Room Air 11/14/23 03:05 Temperature 97 F L 11/14/23 03:05 Pulse Rate 55 L 11/14/23 03:05 Respiratory Rate 24 11/14/23 03:05 Blood Pressure 193/105 H 11/14/23 03:05 Pulse Oximetry 98 11/14/23 03:05 Oxygen Delivery Method Room Air 11/14/23 03:05 Medications Administered Medications: Discontinued Medications Generic Name Dose Route Start Last Admin Trade Name Freq PRN Reason Stop Dose Admin Ketorolac Tromethamine 30 mg 11/14/23 03:33 11/14/23 03:49 Ketorolac 30 Mg/Ml Inj IVP 11/14/23 03:34 30 mg ONCE ONE Administration MDM - Abdominal Pain Lab Data Labs: Lab Results 11/14/23 Range/Units 03:26 WBC 10.33 (4.50-11.00) K/uL RBC 6.13 H (4.30-5.90) m/uL Hgb 17.4 (13.5-17.5) gm/dL Hct 53.1 H (37.0-53.0) % MCV 87 (80-100) fL MCH 28 (26-34) pg MCHC 33 (32-36) gm/dL RDW Coeff of Shun 12.9 (11.5-15.5) % Plt Count 243 (140-440) K/uL Neut % (Auto) 73.0 H (42.0-72.0) % Lymph % (Auto) 17.8 L (20-44) % Hendricks % (Auto) 6.9 (0.0-11.0) % Eos % (Auto) 1.6 (0.0-7.0) % Baso % (Auto) 0.5 (0.0-3.0) % Neut # (Auto) 7.50 H (1.7-7.0) K/uL Lymph # (Auto) 1.80 (0.90-2.90) K/uL Hendricks # (Auto) 0.70 (0.00-0.90) K/UL Eos # (Auto) 0.17 (0.00-0.50) K/uL Baso # (Auto) 0.05 (0.00-0.30) K/uL Abs Immat Gran (auto) 0.02 (0.00-0.30) K/uL Imm/Tot Granulo (auto) 0.2 % Sodium 140 (135-149) mmol/L Potassium 4.5 (3.6-5.1) mmol/L Chloride 106 (96-114) mmol/L Carbon Dioxide 22 (20-32) mmol/L Anion Gap 12 (7-15) mEq/L BUN 16 (5-24) mg/dL Creatinine 0.9 (0.5-1.5) mg/dL Estimated Creat Clear 90.16 Estimated GFR 107 ml/min Glucose 123 H (60-115) mg/dL Calcium 9.6 (8.4-10.6) mg/dL Total Bilirubin 0.6 (0.1-1.5) mg/dL AST 33 (12-35) U/L ALT 37 (4-50) U/L Alkaline Phosphatase 54 (40-150) U/L Total Protein 8.2 (6.0-8.3) g/dL Albumin 4.7 (3.3-5.0) g/dL Lipase 137 (23-300) U/L Discharge Plan Discharge Clinical Impression: Indigestion Patient Disposition: Home, Self-Care Condition: Improved Additional Instructions: [place] diet. Tylenol for pain. If pain persists please follow-up with your PCP. Prescriptions: No Action pantoprazole 40 mg tablet,delayed release (DR/EC) 40 mg PO DAILY Ozempic 2 mg/dose (8 mg/3 mL) pen injector subcut Follow Up/Referrals: GENARO CHRISTIANSON DO [Primary Care Provider] - Stand Alone Forms: MyHealth Info Instructions
[2023-11-14] MEDS: HYDROCODONE-ACETAMIN 5-325 MG 1 TAB PO (04:50)
[2023-11-14] MEDS: MAG HYDROX/ALUMINUM HYD/SIMETH 30 ML ORAL.SUSP PO (04:50)
== END 2023-11-14 04:59 | disposition home or self-care (01) ==
PROVIDERS: Emergency Provider Family Medicine; PCP Student in an Organized Health Care Education/Training Program
DX: K30 Functional dyspepsia (principal)
CPT/HCPCS: 36415; 74177; 80053; 83690; 85025; 96374; 99282; 99284; 99285; A9270; J1885; Q9967